=== PATIENT | female | born 1930 | race Caucasian/White ===

== ENCOUNTER 2016-04-27 09:20 | Inpatient (IN) | payer MEDICARE, OTHER ==
[~2016-04-27] VITALS: Ht 160 cm; Wt 64.2 kg
[2016-04-27] VITALS (8 sets, daily range): BP systolic 125–142; BP diastolic 58–71; PULSE 77–120; RESP 16–24; TEMP 95.7–99.7; O2SAT 94–99
[~2016-04-27 09:20] MED LIST: AMLO5 PO; APIX2.5T PO; ASPI1TAB69 PO; AZEL137S EACH NARE; COLA100C3 PO; HYDR-3583 PO; LIDO5DIS35 TOPICAL; LIPI10TA PO; METO100T PO; MIRA33504 PO; SENN8.6T5 PO; VITA10003 PO; [UNRECOGNIZED DRUG - CODE] PO; voltaren gel TOPICAL
[2016-04-27] MEDS ORDERED: AMIT10TA6 PO (10:01)
[2016-04-27] MEDS ORDERED: MAGN65TA PO (10:01)
[2016-04-27] MEDS ORDERED: VITA20003 PO (10:01)
[2016-04-27] MEDS ORDERED: MULT-135 PO (10:01)
[2016-04-27] MEDS ORDERED: [UNRECOGNIZED DRUG - OTHER] PO (10:01)
[2016-04-27 10:02] LABS: AUTOMATED NEUTROPHIL # 6.4 TH/MM3 (1.8-7.7); BASOPHIL # 0.1 TH/MM3 (0-0.2); BASOPHIL % 0.9 % (0.0-2.0); EOSINOPHIL # 0.6 TH/MM3 (0-0.4); EOSINOPHIL % 6.2 % (0.0-4.0); HEMATOCRIT 34.7 % (35.0-46.0); HEMO FLAGS DIFF FINAL; LYMPH % 11.7 % (9.0-44.0); MEAN CELL VOLUME 86.6 FL (80.0-100.0); MEAN CORPUSCULAR HEMOGLOBIN 29.1 PG (27.0-34.0); MEAN CORPUSCULAR HGB CONC 33.6 % (32.0-36.0); MONO % 8.5 % (0.0-8.0); NEUT % 72.7 % (16.0-70.0); PLATELET COUNT 280 TH/MM3 (150-450); RED CELL DISTRIBUTION WIDTH 14.5 % (11.6-17.2); WHITE BLOOD COUNT 8.9 TH/MM3 (4.0-11.0)
[2016-04-27 10:15] LABS: APTT (PATIENT) 31.7 SEC (24.3-30.1); PROTHROMBIN TIME - PATIENT 11.4 SEC (9.8-11.6)
[2016-04-27 10:19] LABS: ANION GAP 8 MEQ/L (5-15); AST (GOT) 20 U/L (15-37); BLOOD UREA NITROGEN 16 MG/DL (7-18); CHLORIDE 102 MEQ/L (98-107); GLOMERULAR FILTRATION RATE 70 ML/MIN (>89); POTASSIUM 4.3 MEQ/L (3.5-5.1); SODIUM (NA) 138 MEQ/L (136-145)
[2016-04-27 10:23] LABS: ALKALINE PHOSPHATASE 116 U/L (45-117); ALT (GPT) 21 U/L (10-53); TOTAL BILIRUBIN ADULT 0.4 MG/DL (0.2-1.0)
[2016-04-27 10:27] LABS: BLOOD, URINE NEG (NEG); GLUCOSE,URINE NEG (NEG); KETONE, URINE NEG (NEG); NITRITE,URINE NEG (NEG); PH, URINE 6.5 (5.0-8.5); TRANSITIONAL EPI CELLS, URINE 1 /hpf; URINE COLOR YELLOW (YELLW/STRAW)
[2016-04-27 10:33] LABS: COMMENT (UR) CATH-CULT NOT IND; CULTURE IF INDICATED CATH CULTURE NOT IND
--- NOTE | 2016-04-27 10:47 | RADRPT ---
EXAM DATE/TIME: 04/27/2016 10:41 [facility] COMPARISON: CHEST SINGLE AP, July 21, 2015, 8:23. INDICATIONS : Dyspnea. MEDICAL HISTORY : None. SURGICAL HISTORY : None. ENCOUNTER: Initial ACUITY: 1 week PAIN SCORE: 0/10 LOCATION: Bilateral chest FINDINGS: Cardiomegaly is noted. No consolidation or effusion. Aortic calcification. CONCLUSION: No acute disease. Vitaly Barron MD on April 27, 2016 at 10:45 Board Certified Radiologist. This report was verified electronically.
--- NOTE | 2016-04-27 10:53 | RADRPT ---
EXAM DATE/TIME: 04/27/2016 10:46 [facility] COMPARISON: No previous studies available for comparison. INDICATIONS : Confusion and generalized weakness for three days. RADIATION DOSE: 30.23 CTDIvol (mGy) MEDICAL HISTORY : Cardiovascular disease. Hypertension. SURGICAL HISTORY : None. ENCOUNTER: Initial ACUITY: 3 days PAIN SCALE: 0/10 LOCATION: cranial TECHNIQUE: Multiple contiguous axial images were obtained of the head. Using automated exposure control and adj ustment of the mA and/or kV according to patient size, radiation dose was kept as low as reasonably a chievable to obtain optimal diagnostic quality images. FINDINGS: There are no fractures. There is mild atrophy and remote basal ganglia lacunar infarcts and patchy pe riventricular white matter disease. 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 No signs of acute infarct, hemorrhage or mass. CONCLUSION: No acute disease. Vitaly Barron MD on April 27, 2016 at 10:51 Board Certified Radiologist. This report was verified electronically.
--- NOTE | 2016-04-27 10:53 | PD ---
HPI Chief Complaint: Neuro Symptoms/ Deficits Time Seen by Provider: 09:43 Travel History International Travel<30 days: No Contact w/Intl Traveler<30days: No Traveled to known affect area: No History of Present Illness HPI 86 year-old woman who brought in by her daughter for complaints of unusual periods of weakness, associated with some intermittent short apnea, elevated heart rate, some low oxygen saturations, and confusion. This happened at night for the past 2 nights. Daughter is a nurse and checked her vital signs and noticed that her oxygen saturation was little low in the 80s. Daughter says the patient had similar episode about 10 years ago when she had a TIA. Patient lives with her daughter. She normally does pretty well. She walks slowly with a walker but otherwise able to care for herself in most ways. Prior to these symptoms starting 2 nights ago she otherwise has been feeling generally well and healthy. No recent cough or cold symptoms. No other complaints. History Past Medical History Narrative Medical A. fib Hypertension on hyperlipidemia Carotid artery disease, status post CEA Chronic knee pain, on oxycodone History of TIA in 2006 [facility] Social History Alcohol Use: No Tobacco Use: No Allergies-Medications (Allergen,Severity, Reaction): Coded Allergies: Sulfa (Verified Allergy, Intermediate, Rash, 03/10/16) Adhesives (Verified Allergy, Unknown, 03/10/16) Latex (Verified Allergy, Unknown, 03/10/16) Reported Meds & Prescriptions Reported Meds & Active Scripts Active Hydrocodone-Acetaminophen 10-325 mg Tab 1 Tab PO Q6H PRN not to be filled before 05-09-16 Reported Amitriptyline (Amitriptyline HCl) 10 Mg Tab 10 Mg PO HS Multi Vitamin (Multiple Vitamin) 1 Tab Tab 1 Tab PO DAILY [Ocu Support-Macular] 1 Tab PO BID Magnesium Aspartate (Magnesium) 65 Mg Tab 200 Mg PO BID Vitamin D (Cholecalciferol) 2,000 Unit Tab 2,000 Units PO DAILY Miralax Powder (Polyethylene Glycol 3350 Powder) 17 Gm Powd 17 Gm PO DAILY Mix and dissolve one measuring cap-ful (17 grams) in water or juice. Metoprolol Tartrate 100 Mg Tab 100 Mg PO BID Lipitor (Atorvastatin Calcium) 10 Mg Tab 10 Mg PO HS Aspirin 81 Mg Tabdr 81 Mg PO DAILY Norvasc (Amlodipine Besylate) 5 Mg Tab 5 Mg PO DAILY Eliquis (Apixaban) 2.5 Mg Tab 2.5 Mg PO BID Review of Systems Except as stated in HPI: all other systems reviewed are Neg Physical Exam Narrative GENERAL: Well-appearing 86 year-old woman, no acute distress. SKIN: Warm and dry. HEAD: Atraumatic. Normocephalic. EYES: Pupils equal and round. No scleral icterus. No injection or drainage. ENT: No nasal bleeding or discharge. Mucous membranes pink and moist. NECK: Trachea midline. No JVD. CARDIOVASCULAR: Regular rate and rhythm. No murmur appreciated. RESPIRATORY: No accessory muscle use. Clear to auscultation. Breath sounds equal bilaterally. GASTROINTESTINAL: Abdomen soft, non-tender, nondistended. Hepatic and splenic margins not palpable. MUSCULOSKELETAL: No obvious deformities. No edema. NEUROLOGICAL: Awake and alert. No obvious cranial nerve deficits. No facial asymmetry. Motor grossly within normal limits. Strength full and equal upper and lower extremities. Normal speech. PSYCHIATRIC: Appropriate mood and affect; insight and judgment normal. Data Data Last Documented VS Vital Signs Date Time Temp Pulse Resp B/P Pulse Ox O2 Delivery O2 Flow Rate FiO2 04/27/16 11:24 98.8 77 18 136/63 97 Nasal Cannula 2 Orders Complete Blood Count With Diff (04/27/16 09:44) Comprehensive Metabolic Panel (04/27/16 09:44) Act Partial Throm Time (Ptt) (04/27/16 09:44) Prothrombin Time / Inr (Pt) (04/27/16 09:44) Iv Access Insert/Monitor (04/27/16 09:44) Urinalysis - C+S If Indicated (04/27/16 09:44) Troponin I (04/27/16 09:44) Ct Brain W/O Iv Contrast(Rout) (04/27/16 ) Chest, Single Ap (04/27/16 ) Admit Order (Ed Use Only) (04/27/16 ) Labs Laboratory Tests Test 04/27/16 04/27/16 09:50 09:56 White Blood Count 8.9 TH/MM3 Red Blood Count 4.00 MIL/MM3 Hemoglobin 11.7 GM/DL Hematocrit 34.7 % Mean Corpuscular Volume 86.6 FL Mean Corpuscular Hemoglobin 29.1 PG Mean Corpuscular Hemoglobin 33.6 % Concent Red Cell Distribution Width 14.5 % Platelet Count 280 TH/MM3 Mean Platelet Volume 7.5 FL Neutrophils (%) (Auto) 72.7 % Lymphocytes (%) (Auto) 11.7 % Monocytes (%) (Auto) 8.5 % Eosinophils (%) (Auto) 6.2 % Basophils (%) (Auto) 0.9 % Neutrophils # (Auto) 6.4 TH/MM3 Lymphocytes # (Auto) 1.0 TH/MM3 Monocytes # (Auto) 0.8 TH/MM3 Eosinophils # (Auto) 0.6 TH/MM3 Basophils # (Auto) 0.1 TH/MM3 CBC Comment DIFF FINAL Differential Comment Prothrombin Time 11.4 SEC Prothromb Time International 1.0 RATIO Ratio Activated Partial 31.7 SEC Thromboplast Time Sodium Level 138 MEQ/L Potassium Level 4.3 MEQ/L Chloride Level 102 MEQ/L Carbon Dioxide Level 28.0 MEQ/L Anion Gap 8 MEQ/L Blood Urea Nitrogen 16 MG/DL Creatinine 0.78 MG/DL Estimat Glomerular Filtration 70 ML/MIN Rate Random Glucose 121 MG/DL Calcium Level 9.3 MG/DL Total Bilirubin 0.4 MG/DL Aspartate Amino Transf 20 U/L (AST/SGOT) Alanine Aminotransferase 21 U/L (ALT/SGPT) Alkaline Phosphatase 116 U/L Troponin I LESS THAN 0.02 NG/ML Total Protein 7.3 GM/DL Albumin 3.0 GM/DL Urine Color YELLOW Urine Turbidity CLEAR Urine pH 6.5 Urine Specific [place] 1.012 Urine Protein NEG mg/dL Urine Glucose (UA) NEG mg/dL Urine Ketones NEG mg/dL Urine Occult Blood NEG Urine Nitrite NEG Urine Bilirubin NEG Urine Urobilinogen LESS THAN 2.0 MG/DL Urine Leukocyte Esterase NEG Urine RBC LESS THAN 1 /hpf Urine WBC LESS THAN 1 /hpf Urine Transitional Epithelial 1 /hpf Cells Microscopic Urinalysis Comment CATH-CULT NOT IND MDM Medical Decision Making Medical Screen Exam Complete: Yes Emergency Medical Condition: Yes Interpretation(s) My review of EKG: Irregular wide-complex rhythm, rate of undetermined, left bundle branch block type pattern, some anterior precordial ST changes, compared to previous EKG from June 2015, wide-complex rhythm is new. LABS: CBC unremarkable. CMP is unremarkable Troponin is negative Coags are unremarkable UA is negative. Head CT: No acute disease. Chest x-ray: No acute disease. Differential Diagnosis Generalized weakness, infection, adverse effect to medication, kidney failure, other Narrative Course Medical decision making Send a 86-year-old woman who presents to the emergency room brought in by her daughter for what sounds like transient episodes of generalized weakness, confusion, associated with abnormal vital signs with tachycardia history of A. fib, and possibly short periods of apnea with low oxygen saturations. She is on oxycodone daily bit of actually been cutting back. She otherwise has been feeling well. We'll check x-ray, CT, labs, reassess. FINAL: 86 year-old woman, unusual episodes generalized weakness, appear benign, spoke with patient's primary physician, Dr. Tejada, will admit the patient to the hospital. Admitting Information Admitting Physician Requests: Observation Simon Alonso MD Apr 27, 2016 10:53
--- NOTE | 2016-04-27 12:00 | HHI.HP ---
[facility] Service Family Medicine Primary Care Physician Jose Daniel Tejada MD Admission Diagnosis AMS Diagnoses: International Travel<30 Days: No Contact w/Intl Traveler<30days: No Known Affected Area: No History of Present Illness Per patient's daughter, who presented with the patient, on WednesdayApril 24 , patient couldn't walk for about 3 hours between 5 PM and 8 PM. The next day she was fine. Then on April 26, at 5pm-8pm again, patient experienced inability to walk that again lasted 3 hours. Per patient's daughter, pt wanted to go to the bathroom, and could stand but couldn't stay up, couldn't move legs. Daughter noted yesterday that she had apneic spells for 10-15 seconds while sitting up at the table. Daughter, who is a nurse, took her bp and noted a RR of 24-28 bpm, and that her oxygen saturation was little low in the 80s. Daughter says the patient had similar episode about 10 years ago when she had a TIA. Patient lives with her daughter. She normally does pretty well. She walks slowly with a walker but otherwise able to care for herself in most ways. Prior to these symptoms starting 2 nights ago she otherwise has been feeling generally well and healthy. No recent cough or cold symptoms. No other complaints. No symptoms today. No chest pain, headache, vision change, hearing change (wear hearing aids), dysphagia, fever yesterday and day before to 100.4. Pt went to bed with fever, took pain medication, and woke up with night sweats such that she soaked through her pajamas. No appetite, but no diarrhea, no reflux symptoms , but + loose stools with Miralax, no constipation, no dysuria, no urinary changes. No other changes with legs except weakness as above. When asked if any pills from the pharmacy look different, daughter reported that the amytripyline looks different; it is now bright pink. A couple weeks ago, patient was visiting a retina specialist when she fell against wall and now has had bruise on leg. No skin breakdown. (Yasir Schofield MD R1) Review of Systems Constitutional: COMPLAINS OF: Fever (yesterday in the data for to 100.4), Change in appetite (no appetite), Night Sweats (the night she went to bed with a fever, she soaked through her pajamas) Eyes: DENIES: Blurred vision, Vision loss, Double Vision Ears, nose, mouth, throat: DENIES: Hearing loss (patient does wear hearing aids , but no hearing change acutely) Respiratory: DENIES: Cough Cardiovascular: DENIES: Chest pain Gastrointestinal: DENIES: Diarrhea, Nausea, Vomiting, Difficulty Swallowing Genitourinary: DENIES: Dysuria Musculoskeletal: COMPLAINS OF: Joint pain (chronic knee pain) Integumentary: DENIES: Rash Neurologic: DENIES: Headache (Yasir Schofield MD R1) Past Family Social History Past Medical History Past Medical History: Hypertension Atrial fibrillation Elevated cholesterol Obstructive sleep apnea Dry eye 3 para 2 AB 1 Childhood illnesses: Chickenpox, measles, mumps Other Physicians/Providers Involved in the Care of Patient:Angela Villarreal [place] - [facility] Specialist Health Maintenance: Refuses flu shot Colonoscopy 2007 Mammogram 2012 Recently sent in [facility] Prevnar 13 October 23, 2014 Past Surgical History Past Surgical/Procedural History: 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 November 1999 Fracture knee 2000 Carotid left endarterectomy 2013 Reported Medications Prescriptions Reviewed Last Reconciled on 03/10/16 12:49 by JOSE DANIEL TEJADA Azelastine-Fluticasone Nasal [place] (Dymista Nasal [place])137-50 Mcg Spray1 [place] EACH NARE DAILY #1 BOTTLE Ref 0 Reported 03/10/16 Polyethylene Glycol 3350 Powder (Miralax Powder)17 Gm Powd17 Gm PO DAILY #1 BOTTLE Ref 0 Reported 03/10/16 Sennosides (Senna)8.6 Mg Tab8.6 Mg PO HS PRN (Constipation) #60 TAB Ref 0 Reported 03/10/16 Metoprolol Tartrate 100 Mg Bae236 Mg PO BID #60 TAB Ref 0 Reported 03/10/16 Rkxbhe-Ogcfmrqbsl-Vvpqvlds (Viteyes Essentials)15-4.75-100 Mg-Mg-Mcg Cap1 Cap PO DAILY Ref 0 Reported 03/10/16 Docusate Sodium (Colace)100 Mg Klk430 Mg PO DAILY #30 CAP Ref 0 Reported 03/10/16 Cholecalciferol (Vitamin D-3)1,000 Unit Tab2,000 Units PO DAILY #30 TAB Ref 0 Reported 03/10/16 Atorvastatin (Lipitor)10 Mg Tab10 Mg PO HS #30 TAB Ref 0 Reported 03/10/16 Aspirin 81 Mg Tabdr81 Mg PO DAILY Reported 03/10/16 Amlodipine (Norvasc)5 Mg Tab5 Mg PO DAILY #30 TAB Ref 0 Reported 03/10/16 Lidocaine Patch 12 HR (Lidoderm Patch 12 HR)5% Patch2 Patch TOPICAL DAILY #120 BOX Ref 0 Reported 03/10/16 Apixaban (Eliquis)2.5 Mg Tab2.5 Mg PO BID #60 TAB Ref 0 Reported 03/10/16 Hydrocodone-Acetaminophen 10-325 mg Tab1 Tab PO Q6H PRN (PAIN) #120 TAB Ref 0 Prov: Jose Daniel Tejada MD 03/10/16 [voltaren gel] No Conflict Check1 Ml TOPICAL TID #100 Ref 3 Prov: Jose Daniel Tejada MD 12/17/15 Amytriptiline 10mg po qhs (Yasir Schofield MD R1) Allergies: Coded Allergies: Sulfa (Verified Allergy, Intermediate, Rash, 03/10/16) Adhesives (Verified Allergy, Unknown, 03/10/16) Latex (Verified Allergy, Unknown, 03/10/16) Uncoded Allergies: PACEMAKER (Adverse Reaction, Severe, NON COMPATIBLE PACEMAKER, 04/27/16) PT HAS [employer] PACMAKER BUT IT IS NOT MR COMPATIBLE AT THIS TIME ?LEADS 04/27/16 VSV Active Ordered Medications Current Medications Medications (Trade) Dose Ordered Sig/[place] Route Start Time Stop Time Status Last Admin (NS Flush) 2 ml BID IVF 04/27/16 21:00 IV Flush 2 ml 2 ml UNSCH PRN IVF 04/27/16 12:45 (NS 1000 ml Inj) 1,000 ml @ 70 mls/hr [id number] IV 04/27/16 13:00 04/27/16 13:00 (Vasotec Inj) 1.25 mg Q4H PRN IV 04/27/16 12:45 (D50w (Vial) Inj) 25 ml UNSCH PRN IV PUSH 04/27/16 12:45 (Glucagon Inj) 1 mg UNSCH PRN IM/SQ 04/27/16 12:45 (Elavil) 10 mg HS PO 04/27/16 21:00 04/27/16 22:35 (Norvasc) 5 mg DAILY PO 04/28/16 09:00 (Eliquis) 2.5 mg BID PO 04/27/16 21:00 04/27/16 22:36 (Ecotrin Ec) 81 mg DAILY PO 04/28/16 09:00 (Lipitor) 10 mg HS PO 04/27/16 21:00 04/27/16 22:36 (Lopressor) 100 mg BID PO 04/27/16 21:00 04/27/16 22:36 (Miralax) 17 gm DAILY PO 04/28/16 09:00 (Mag-Ox) 200 mg BID PO 04/27/16 21:00 04/27/16 22:36 (Ocuvite) 1 tab BID PO 04/27/16 21:00 04/27/16 22:35 ([place] 10-325 Mg) 1 tab Q8H PRN PO 04/27/16 12:45 04/27/16 22:58 (Pill Splitter) 1 ea UNSCH PRN OTHER 04/27/16 13:00 Family History Family History: Father: at age 63 with history of alcoholism, esophageal cancer, and tobacco use Mother: in mid 70s with alcoholism, osteoporosis, emphysema and congestive heart failure Siblings: Brother at age 54 of a drug overdose and alcoholism Children: Son after atrial septal defect heart surgery at the age of 5, daughter, living and well status post endometrial cancer in 1998 Family Medical History Patient History: Alcohol abuse G8 FATHER G8 MOTHER G8 BROTHER Alcohol abuse G8 FATHER G8 MOTHER G8 BROTHER Arthritis 19 DAUGHTER, Onset:Unknown Social History Social History: Marital Status: for 25 years Living Situation: Lives in [place] Education: high school 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 SKIN: No rashes, ecchymoses or lesions. Cool and dry. HEAD: Atraumatic. Normocephalic. EYES: Pupils equal round and reactive. Extraocular motions intact. No scleral icterus. No injection or drainage. ENT: Nose without bleeding, purulent drainage. Throat without erythema, tonsillar hypertrophy or exudate. Uvula midline. Airway patent. NECK: Trachea midline. No JVD or lymphadenopathy. Supple, nontender, no meningeal signs. CARDIOVASCULAR: Regular rate and rhythm without murmurs, gallops, or rubs. RESPIRATORY: Clear to auscultation. Breath sounds equal bilaterally. No wheezes , rales, or rhonchi. GASTROINTESTINAL: Abdomen soft, non-tender, nondistended. No guarding. MUSCULOSKELETAL: Extremities without clubbing, cyanosis, or edema. No joint tenderness, effusion, or edema noted. No calf tenderness. No fifth toes BL. Surgical scars on feet. NEUROLOGICAL: Awake and alert. Cranial nerves II through XII intact. 4/5 stregnth of right hip flexor. Motor and sensory grossly within normal limits. 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 Normal speech. Laboratory Laboratory Tests Test 04/27/16 04/27/16 09:50 09:56 White Blood Count 8.9 Red Blood Count 4.00 Hemoglobin 11.7 Hematocrit 34.7 Mean Corpuscular Volume 86.6 Mean Corpuscular Hemoglobin 29.1 Mean Corpuscular Hemoglobin 33.6 Concent Red Cell Distribution Width 14.5 Platelet Count 280 Mean Platelet Volume 7.5 Neutrophils (%) (Auto) 72.7 Lymphocytes (%) (Auto) 11.7 Monocytes (%) (Auto) 8.5 Eosinophils (%) (Auto) 6.2 Basophils (%) (Auto) 0.9 Neutrophils # (Auto) 6.4 Lymphocytes # (Auto) 1.0 Monocytes # (Auto) 0.8 Eosinophils # (Auto) 0.6 Basophils # (Auto) 0.1 CBC Comment DIFF FINAL Differential Comment Prothrombin Time 11.4 Prothromb Time International 1.0 Ratio Activated Partial 31.7 Thromboplast Time Sodium Level 138 Potassium Level 4.3 Chloride Level 102 Carbon Dioxide Level 28.0 Anion Gap 8 Blood Urea Nitrogen 16 Creatinine 0.78 Estimat Glomerular Filtration 70 Rate Random Glucose 121 Calcium Level 9.3 Total Bilirubin 0.4 Aspartate Amino Transf 20 (AST/SGOT) Alanine Aminotransferase 21 (ALT/SGPT) Alkaline Phosphatase 116 Troponin I LESS THAN 0.02 Total Protein 7.3 Albumin 3.0 Urine Color YELLOW Urine Turbidity CLEAR Urine pH 6.5 Urine Specific [place] 1.012 Urine Protein NEG Urine Glucose (UA) NEG Urine Ketones NEG Urine Occult Blood NEG Urine Nitrite NEG Urine Bilirubin NEG Urine Urobilinogen LESS THAN 2.0 Urine Leukocyte Esterase NEG Urine RBC LESS THAN 1 Urine WBC LESS THAN 1 Urine Transitional Epithelial 1 Cells Microscopic Urinalysis Comment CATH-CULT NOT IND (Yasir Schofield MD R1) Result Diagram: 04/27/16 0950 04/27/16 0950 Imaging Last Impressions Head CT 04/27/16 0000 Signed Impressions: Service Date/Time: Wednesday, April 27, 2016 10:46 - CONCLUSION: No acute disease. Vitaly Barron MD Chest X-Ray 04/27/16 0000 Signed Impressions: Service Date/Time: Wednesday, April 27, 2016 10:41 - CONCLUSION: No acute disease. Vitaly Barron MD Carotid Artery Ultrasound 04/27/16 0000 Signed Impressions: Service Date/Time: Wednesday, April 27, 2016 13:29 - CONCLUSION: 1. No evidence for hemodynamically significant stenosis. Vitaly Barron MD Course In the emergency department, patient had a troponin, urinalysis, PT/INR, APTT, CMP, CBC, chest x-ray, CT brain without IV contrast, EKG. (Yasir Schofield MD R1) Assessment and Plan Assessment and Plan 86-year-old female presents with her daughter with a chief complaint of intermittent, transient lower extremity weakness concerning for TIA. Will admit for TIA workup. Code Status Full code Discussed Condition With Patient seen and discussed with Dr. Tang Tejada and Dr. Jose Daniel Tejada. (Yasir Schofield MD R1) Attending Attestation Patient seen and examined. Case reviewed and discussed with the resident team. Agree with plan of care as discussed with me and documented in the resident note. (Jose Daniel Tejada MD) Problem List: (1) Weakness of both legs Status: Acute Plan: Patient admitted for TIA workup with chief complaint of lower extremity weakness. Admit to inpatient Echocardiogram Carotid ultrasound No MRI or MRA given patient's ICD with metal Hemoglobin A1c, lipid profile BMP, CBC in the morning Normal saline IV 70 mL/h Permissive hypertension and strict blood glucose control with low-dose sliding scale insulin Rehabilitation medicine consult (2) Knee pain, chronic Status: Chronic Plan: Patient mostly stable on home medications. Continue home medications as below: [place] 325-10 mg on tab by mouth every 8 hours when necessary for pain MiraLAX 17 g by mouth daily for opioid-induced constipation Amitriptyline 10 mg by mouth daily at bedtime to help with sleep and chronic pain (3) Atrial fibrillation, chronic Status: Chronic Plan: Continue home medications. Apixaban 2.5 mg by mouth twice a day Aspirin 81 mg by mouth daily Metoprolol tartrate 100 mg by mouth twice a day (4) Hypertension Status: Chronic Plan: Patient mostly stable on home medications. Continue home medications as below: Amlodipine 5 mg by mouth daily Metoprolol as above (5) HLD (hyperlipidemia) Status: Chronic Plan: Continue home medication. Atorvastatin 10 mg by mouth daily at bedtime (6) Pacemaker Status: Chronic Plan: No MRI or MRA because of metal components of patient's pacemaker. (7) Nutrition, metabolism, and development symptoms Status: Acute Plan: Fluids: Normal saline IV 70 mL per hour Electrolytes: Monitor and replete as necessary Nutrition: Heart healthy diet GI prophylaxis: Currently indicated at this time (8) No contraindication to deep vein thrombosis (DVT) prophylaxis Status: Acute Plan: Patient on apixaban at home. Continue home medication of apixaban 2.5 mg by mouth twice a day (Yasir Schofield MD R1) Yasir Schofield MD R1 Apr 27, 2016 12:00 Jose Daniel Tejada MD Apr 28, 2016 14:11
--- NOTE | 2016-04-27 12:42 | HHI.FPPN ---
Subjective Remarks Pt. seen, examined and discussed with Drs. Tejada and Kanwal. This is an 86 yo female known to me with history of spells X 2 on -and 04-26 at 5 pm lasting 3 hr where she was weak and felt unable to ambulate. No chest pain, headache, visual change or unilateral weakness, just felt unable to stand. Daughter took her temp at 100.4 because she felt warm. Last evening, prior to 5 p.m. daughter noted a couple of spells of apnea lasting 10- 15 seconds. See H&P for this admission for additional past, family and social history. No new changes. Sees Dr. Connelly and the retina specialist for wet macular degeneration and needs a yag laser treatment for capsule formation on her cataract implant. Complete review of systems was obtained and other than the spells and brief apnea noted above, as well as chronic knee pain from osteoarthritis, all the other systems were negative. Objective Vitals Vital Signs Date Time Temp Pulse Resp B/P Pulse Ox O2 Delivery O2 Flow Rate FiO2 04/27/16 11:24 98.8 77 18 136/63 97 Nasal Cannula 2 04/27/16 09:39 78 18 95 Nasal Cannula 2 04/27/16 09:32 98.2 78 18 94 04/27/16 09:22 97.8 80 16 125/58 95 Result Diagram: 04/27/16 0950 04/27/16 0950 Other Results Laboratory Tests Test 04/27/16 04/27/16 09:50 09:56 White Blood Count 8.9 TH/MM3 Red Blood Count 4.00 MIL/MM3 Hemoglobin 11.7 GM/DL Hematocrit 34.7 % Mean Corpuscular Volume 86.6 FL Mean Corpuscular Hemoglobin 29.1 PG Mean Corpuscular Hemoglobin 33.6 % Concent Red Cell Distribution Width 14.5 % Platelet Count 280 TH/MM3 Mean Platelet Volume 7.5 FL Neutrophils (%) (Auto) 72.7 % Lymphocytes (%) (Auto) 11.7 % Monocytes (%) (Auto) 8.5 % Eosinophils (%) (Auto) 6.2 % Basophils (%) (Auto) 0.9 % Neutrophils # (Auto) 6.4 TH/MM3 Lymphocytes # (Auto) 1.0 TH/MM3 Monocytes # (Auto) 0.8 TH/MM3 Eosinophils # (Auto) 0.6 TH/MM3 Basophils # (Auto) 0.1 TH/MM3 CBC Comment DIFF FINAL Differential Comment Prothrombin Time 11.4 SEC Prothromb Time International 1.0 RATIO Ratio Activated Partial 31.7 SEC Thromboplast Time Sodium Level 138 MEQ/L Potassium Level 4.3 MEQ/L Chloride Level 102 MEQ/L Carbon Dioxide Level 28.0 MEQ/L Anion Gap 8 MEQ/L Blood Urea Nitrogen 16 MG/DL Creatinine 0.78 MG/DL Estimat Glomerular Filtration 70 ML/MIN Rate Random Glucose 121 MG/DL Calcium Level 9.3 MG/DL Total Bilirubin 0.4 MG/DL Aspartate Amino Transf 20 U/L (AST/SGOT) Alanine Aminotransferase 21 U/L (ALT/SGPT) Alkaline Phosphatase 116 U/L Troponin I LESS THAN 0.02 NG/ML Total Protein 7.3 GM/DL Albumin 3.0 GM/DL Urine Color YELLOW Urine Turbidity CLEAR Urine pH 6.5 Urine Specific Dennard 1.012 Urine Protein NEG mg/dL Urine Glucose (UA) NEG mg/dL Urine Ketones NEG mg/dL Urine Occult Blood NEG Urine Nitrite NEG Urine Bilirubin NEG Urine Urobilinogen LESS THAN 2.0 MG/DL Urine Leukocyte Esterase NEG Urine RBC LESS THAN 1 /hpf Urine WBC LESS THAN 1 /hpf Urine Transitional Epithelial 1 /hpf Cells Microscopic Urinalysis Comment CATH-CULT NOT IND Imaging CXR negative CT head old lacunar infarcts, old stroke, no acute findings Objective Remarks O. CONSTITUTIONAL/GEN: normally nourished, in NAD. EYES: conjunctiva normal, PERRLA, EOMI. ENT: Mouth and pharynx normal. MM moist. NECK: thyroid midline, carotids bruit not appreciated LUNGS: clear A-P, respiratory effort is normal. CARDIOVASCULAR: AF rate controlled without murmur or gallop. No significant edema. GI/ABD: soft without masses, without organomegaly. BS+ : no CVA tenderness NEURO: No focal deficits. CN 2-12 tested and intact SKIN: color normal, no rashes noted. HEME/LYMPH: no bruising, petechia or significant adenopathy MUSC: back is normal in appearance. 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 PSYCH/MENTAL STATUS: Alert and oriented x 3. A/P Assessment and Plan Likely TIA in 86 yo with hx of atrial fibrillation on Eliquis Attending Attestation Patient seen and examined. Case reviewed and discussed with the resident team. Agree with plan of care as discussed with me and documented in the resident note. Mallory Tejada MD Apr 27, 2016 12:42
[2016-04-27] MEDS ORDERED: SODIUM CHLORIDE 0.9% FLUSH 5 ML FLUSH IVF PRN (12:45)
[2016-04-27] MEDS ORDERED: ACETAMINOPHEN/HYDROcodone 325 MG/10 MG TAB PO PRN (12:45)
[2016-04-27] MEDS ORDERED: DEXTROSE 50% IN WATER 50 ML VIAL(D50) IV PUSH PRN (12:45)
[2016-04-27] MEDS ORDERED: ENALAPRILAT 1.25 MG/ML VIAL IV PRN (12:45)
[2016-04-27] MEDS ORDERED: GLUCAGON 1 MG/ML VIAL IM/SQ PRN (12:45)
[2016-04-27] MEDS ORDERED: PILL SPLITTER OTHER PRN (13:00)
[2016-04-27] MEDS: SODIUM CHLOR 0.9% 1000 ML INJ 1,000 ML IV SCH (13:00)
--- NOTE | 2016-04-27 14:09 | RADRPT ---
EXAM DATE/TIME: 04/27/2016 13:29 [facility] COMPARISON: No previous studies available for comparison. INDICATIONS : Cerebrovascular accident. MEDICAL HISTORY : Hypercholesterolemia. Hypertension. Arthritis. CVA. Atrial fibrillation. Chest pain. Sleep apnea. Ant icoagulant therapy, Eliquis and Coumadin. SURGICAL HISTORY : Pacemaker. Bilateral cataract surgery. Hip replacement. Knee surgery x5. Blood transfusions. ENCOUNTER: Initial ACUITY: 1 day PAIN SCORE: 0/10 LOCATION: Bilateral neck PEAK SYSTOLIC VELOCITIES (cm/sec): ICA/CCA RATIO: Right: 1.4 Left: 0.9 ICA: Right: 72 Left: 62 CCA: Right: 52 Left: 65 ECA: Right: 119 Left: 70 VERTEBRAL: Right: 40 antegrade Left: 39 antegrade Elevated flow velocities and ICA/CCA ratios have been found to correlate with increased degrees of vessel stenosis, calculated as percentage of diameter relative to a normal segment of distal ICA/CCA FINDINGS: RIGHT CAROTID: Moderate calcific plaquing is noted with mild elevated velocity in the right external carotid artery. LEFT CAROTID: No significant stenosis is visualized. The waveforms are within normal limits. VERTEBRAL ARTERIES: Antegrade flow is seen in both vertebral arteries. MISCELLANEOUS: None. CONCLUSION: 1. No evidence for hemodynamically significant stenosis. Vitaly Barron MD on April 27, 2016 at 14:06 Board Certified Radiologist. This report was verified electronically.
[2016-04-27] MEDS: ACETAMINOPHEN/HYDROcodone 325 MG/10 MG TAB PO PRN ×2 (16:43→22:58)
[2016-04-27] MEDS: INSULIN ASPART SUPPLEMENTAL SCALE SQ SCH ×2 (16:50→20:07)
[2016-04-27 18:11] LABS: HEMOGLOBIN A1a 1.2 %; HEMOGLOBIN A1b 0.9 %; HEMOGLOBIN Ao 84.2 %; HEMOGLOBIN F 1.1 %; HEMOGLOBIN LA1C 2.1 %; HEMOGLOBIN P3 4.1 %
--- NOTE | 2016-04-27 18:21 | EKG ---
Date Performed: 04/27/2016 Time Performed: 09:33:43 PTAGE: 86 years EKG: Probable atrial flutter Poor R wave progression with intraventricular conduction delay. Whe n compared to previous tracing, the patient is now possibly in Atrial flutter. Clinical correlation i s suggested. ABNORMAL ECG PREVIOUS TRACING : 07/21/2015 14.22 DOCTOR: Angela Villarreal Interpretating Date/Time 04/27/2016 18:19:49
[2016-04-27] MEDS ORDERED: AMITRIPTYLINE HCL 10 MG TAB PO SCH (21:00)
[2016-04-27] MEDS ORDERED: ATORVASTATIN 10 MG TAB PO SCH (21:00)
[2016-04-27] MEDS: SODIUM CHLORIDE 0.9% FLUSH 5 ML FLUSH IVF SCH (21:00)
[2016-04-27] MEDS: MULTIVITAMIN-OPHTHALMIC 1 TAB PO SCH (22:35)
[2016-04-27] MEDS: APIXABAN 2.5 MG TABLET PO SCH (22:36)
[2016-04-27] MEDS: MAGNESIUM OXIDE 400 MG TAB PO SCH (22:36)
[2016-04-27] MEDS: METOPROLOL TARTRATE 100 MG TAB PO SCH (22:36)
[2016-04-28] VITALS: BP 115/55; PULSE 88; RESP 18; TEMP 97.9; O2SAT 96
[2016-04-28] MEDS: SODIUM CHLOR 0.9% 1000 ML INJ 1,000 ML IV SCH (03:18)
[2016-04-28 04:00] VITALS: BP 137/68; PULSE 80; RESP 18; TEMP 96.3; O2SAT 94
[2016-04-28] MEDS: ACETAMINOPHEN/HYDROcodone 325 MG/10 MG TAB PO PRN (06:51)
[2016-04-28] MEDS: INSULIN ASPART SUPPLEMENTAL SCALE SQ SCH (07:00)
[2016-04-28 07:13] LABS: AUTOMATED NEUTROPHIL # 5.8 TH/MM3 (1.8-7.7); BASOPHIL % 0.5 % (0.0-2.0); EOSINOPHIL # 0.4 TH/MM3 (0-0.4); EOSINOPHIL % 5.7 % (0.0-4.0); HEMATOCRIT 34.9 % (35.0-46.0); HEMO FLAGS DIFF FINAL; LYMPH % 10.3 % (9.0-44.0); LYMPHOCYTE # 0.8 TH/MM3 (1.0-4.8); MEAN CELL VOLUME 87.1 FL (80.0-100.0); MEAN CORPUSCULAR HEMOGLOBIN 28.8 PG (27.0-34.0); MONO % 8.2 % (0.0-8.0); NEUT % 75.3 % (16.0-70.0); PLATELET COUNT 236 TH/MM3 (150-450); RED BLOOD COUNT 4.01 MIL/MM3 (4.00-5.30); RED CELL DISTRIBUTION WIDTH 14.7 % (11.6-17.2); WHITE BLOOD COUNT 7.7 TH/MM3 (4.0-11.0)
[2016-04-28 07:18] LABS: POTASSIUM 4.2 MEQ/L (3.5-5.1)
[2016-04-28 07:19] LABS: HDL CHOLESTEROL 43.2 MG/DL (40.0-60.0)
[2016-04-28 07:44] VITALS: PULSE 87
[2016-04-28 08:12] VITALS: BP 136/61; PULSE 94; RESP 20; TEMP 97.2; O2SAT 91
[2016-04-28 08:28] VITALS: O2SAT 94
[2016-04-28] MEDS ORDERED: amLODIPine BESYLATE 5 MG TAB PO SCH (09:00)
[2016-04-28] MEDS ORDERED: POLYETHYLENE GLYCOL 17 GM PKG PO SCH (09:00)
[2016-04-28] MEDS ORDERED: ASPIRIN EC 81 MG TABEC PO SCH (09:00)
--- NOTE | 2016-04-28 09:08 | HHI.DCPOC ---
Discharge Care Plan Diagnosis: (1) Weakness of both legs Goals to Promote Your Health * To prevent worsening of your condition and complications, please take your medications as prescribed. * To maintain your health at the optimal level, please follow up with your doctors as instructed. Directions to Meet Your Goals Take your medications as prescribed Follow your dietary instruction Follow activity as directed Keep your appointments as scheduled Take your immunizations and boosters as scheduled If your symptoms worsen call your PCP, if no PCP go to Urgent Care Center or Emergency Room Smoking is Dangerous to Your Health. Avoid second hand smoke Call the 24-hour hour crisis hotline for domestic abuse at Yasir Schofield MD R1 Apr 28, 2016 09:08
[2016-04-28] MEDS: MULTIVITAMIN-OPHTHALMIC 1 TAB PO SCH (09:32)
[2016-04-28] MEDS: APIXABAN 2.5 MG TABLET PO SCH (09:32)
[2016-04-28] MEDS: MAGNESIUM OXIDE 400 MG TAB PO SCH (09:33)
[2016-04-28] MEDS: METOPROLOL TARTRATE 100 MG TAB PO SCH (09:33)
[2016-04-28] MEDS: SODIUM CHLORIDE 0.9% FLUSH 5 ML FLUSH IVF SCH (09:34)
--- NOTE | 2016-04-28 10:38 | HHI.FF ---
Face to Face Verification Diagnosis: (1) Weakness of both legs Physical Therapy Order: Evaluate and Treat, Improve ambulation, Strength and gait training Occupational Therapy Order: Evaluate and Treat, Improve ADL, Gross motor coordination I have seen patient Smitha Briggs on 04/28/16. My clinical findings support the need for the requested home health care services because: Ltd mobility - disease progression Deconditioned w/ increased weakness Limited ability to care for self High risk of falls I certify that my clinical findings support that this patient is homebound because: Unsteady gait/balance Unsafe to leave home unassisted Patient seen and examined. Case reviewed and discussed with the resident team. Agree with plan of care as discussed with me and documented in the resident note. Yasir Schofield MD R1 Apr 28, 2016 10:38 Mallory Tejada MD Apr 28, 2016 13:46
--- NOTE | 2016-04-28 13:26 | HHI.FPPN ---
Subjective Remarks No acute events overnight. Afebrile, vital signs stable. Patient is clinically improved this morning and wishes to go home. She has no complaints at this time. (Bryanna Paula MD R3) Objective Vitals Vital Signs Date Time Temp Pulse Resp B/P Pulse Ox O2 Delivery O2 Flow Rate FiO2 04/28/16 08:28 94 21 04/28/16 08:12 97.2 94 20 136/61 91 04/28/16 07:44 87 04/28/16 04:00 96.3 80 18 137/68 94 04/28/16 00:00 97.9 88 18 115/55 96 04/27/16 23:00 117 04/27/16 20:00 97.9 120 24 131/68 96 04/27/16 16:52 99.7 04/27/16 16:05 Nasal Cannula 2.00 04/27/16 16:00 95.7 98 20 142/67 99 I/O 04/27/16 04/27/16 04/27/16 04/28/16 04/28/16 04/28/16 06:59 14:59 22:59 06:59 14:59 22:59 Intake Total 240 ml 240 ml Balance 240 ml 240 ml Intake Oral 240 ml 240 ml # Voids 1 1 # Bowel Movements 0 (Bryanna Paula MD R3) Result Diagram: 04/28/16 0620 04/28/16 0620 Objective Remarks Gen.: No acute distress Head: Normocephalic. Atraumatic. EENT: Pupils equal round and reactive to light. Nose without drainage. Airway intact. Throat without injection. Cardiovascular: Regular rate with irregular rhythm. No murmurs, rubs or gallops. Respiratory: Lungs clear to auscultation bilaterally. No wheezes or rhonchi. Abdomen: Soft, nontender, nondistended. No peritoneal signs. Musculoskeletal: No gross deformities. No edema. Skin: No obvious rashes or erythema. Neuro: Sensory and motor grossly intact. Cranial nerves II through XII grossly intact. Psych: Appropriate mood and affect (Bryanna Paula MD R3) A/P Assessment and Plan 86-year-old female presents with her daughter with a chief complaint of intermittent, transient lower extremity weakness concerning for TIA. Discharge Planning To home today with home PT/OT (Bryanna Paula MD R3) Attending Attestation Patient seen and examined. Case reviewed and discussed with the resident team. Agree with plan of care as discussed with me and documented in the resident note. (Mallory Tejada MD) Problem List: (1) Weakness of both legs Status: Acute Plan: Patient admitted for TIA workup with chief complaint of lower extremity weakness. Carotid ultrasound within normal limits No MRI or MRA given patient's ICD with metal Hemoglobin A1c, lipid profile within normal limits Normal saline IV 70 mL/h Permissive hypertension and strict blood glucose control with low-dose sliding scale insulin (2) Knee pain, chronic Status: Chronic Plan: Patient mostly stable on home medications. Continue home medications as below: [place] 325-10 mg on tab by mouth every 8 hours when necessary for pain MiraLAX 17 g by mouth daily for opioid-induced constipation Amitriptyline 10 mg by mouth daily at bedtime to help with sleep and chronic pain Discharge with physical therapy (3) Atrial fibrillation, chronic Status: Chronic Plan: Continue home medications. Apixaban 2.5 mg by mouth twice a day Aspirin 81 mg by mouth daily Metoprolol tartrate 100 mg by mouth twice a day (4) Hypertension Status: Chronic Plan: Patient mostly stable on home medications. Continue home medications as below: Amlodipine 5 mg by mouth daily Metoprolol as above (5) HLD (hyperlipidemia) Status: Chronic Plan: Continue home medication. Atorvastatin 10 mg by mouth daily at bedtime (6) Pacemaker Status: Chronic Plan: No MRI or MRA because of metal components of patient's pacemaker. (7) Nutrition, metabolism, and development symptoms Status: Acute Plan: Fluids: Normal saline IV 70 mL per hour Electrolytes: Monitor and replete as necessary Nutrition: Heart healthy diet (8) No contraindication to deep vein thrombosis (DVT) prophylaxis Status: Acute Plan: Patient on apixaban at home. Continue home medication of apixaban 2.5 mg by mouth twice a day (Bryanna Paula MD R3) Bryanna Paula MD R3 Apr 28, 2016 13:26 Mallory Tejada MD Apr 28, 2016 14:19
--- NOTE | 2016-04-28 17:58 | EC ---
Study Study Date:04/28/2016 STUDY CONCLUSIONS SUMMARY - Left ventricle: Systolic function was probably normal. The estimated ejection fraction was in the range of 55% to 60%. - Mitral valve: Mild regurgitation. - Left atrium: The atrium was mildly dilated. - Tricuspid valve: Mild-moderate regurgitation. - Pulmonary arteries: PA peak pressure: 41mm Hg (S). If LV function is below 40, please consider prescribing an ACEI or ARB or document rationale for non-use. PROCEDURE DATA STUDY STATUS: Elective. Procedure: Transthoracic echocardiography. Image quality was good. Scanning was performed from the parasternal, apical, and subcostal acoustic windows. Study completion: The patient tolerated the procedure well. Transthoracic echocardiography. M-mode, complete 2D, complete spectral Doppler, and color Doppler. Patient status: Inpatient. CARDIAC ANATOMY LEFT VENTRICLE: Systolic function was probably normal. The estimated ejection fraction was in the range of 55% to 60%. AORTIC VALVE: Mildly calcified leaflets. Doppler: There was no stenosis. No significant regurgitation. Valve area: 1.56cm^2 (Vmax). MITRAL VALVE: The valve appears to be grossly normal. Doppler: There was no evidence for stenosis. Mild regurgitation. LEFT ATRIUM: The atrium was mildly dilated. PULMONIC VALVE: Not well visualized. TRICUSPID VALVE: The valve appears to be grossly normal. Doppler: There was no evidence for stenosis. Mild-moderate regurgitation. BASIC MEASUREMENTS ADULT NORMAL Left ventricle LV internal dimension, ED, chordal level, *41 mm 43-52 PLAX LV internal dimension, ES, chordal level, 32 mm 23-38 PLAX Fractional shortening, chordal level, PLAX *22 % >29 LV posterior wall thickness, ED 8.98 mm IVS/LVPW ratio, ED 1.16 <1.3 Ventricular septum Septal thickness, ED 10.4 mm Aortic valve Leaflet separation 15 mm 15-26 BASIC MEASUREMENTS ADULT NORMAL Aortic valve Leaflet separation 15 mm 15-26 Aorta Root diameter, ED 20 mm 20-37 Left atrium Anterior-posterior dimension, ES *43 mm 19-40 LA/aortic root ratio 2.15 DOPPLER MEASUREMENTS ADULT NORMAL Main pulmonary artery Pressure, S *41 mm Hg =30 Pressure, ED 27 mm Hg Aortic valve Peak velocity, S 133 cm/s Valve area, Vmax 1.56 cm^2 Mitral valve Maximal regurgitant velocity 212 cm/s Tricuspid valve Regurgitant peak velocity 292 cm/s Peak RV-RA gradient, S 34 mm Hg Maximal regurgitant velocity 292 cm/s Systemic veins Estimated CVP 10 mm Hg Right ventricle RV pressure, S *46 mm Hg <30 Pulmonic valve Peak velocity, S 114 cm/s Regurgitant velocity, ED 204 cm/s LEGEND: Mean values are shown as u=mean value. Asterisk (*) holley values outside specified normal range. Prepared and signed by Sameer Harvey [id number]
[2016-06-02] MEDS ORDERED: HYDR-3583 PO ×2 (09:37→09:43)
[2016-06-03] MEDS ORDERED: alpha lipoic acid (09:30)
[2016-06-03] MEDS ORDERED: POTA10TA15 PO (09:30)
[2016-06-03] MEDS ORDERED: CO Q200C PO (09:30)
[2016-06-03] MEDS ORDERED: FURO1TAB62 PO (09:30)
[2016-06-03] MEDS ORDERED: OXYGENTANK NAS.CANULA (09:30)
[2016-06-03] MEDS ORDERED: [UNRECOGNIZED DRUG - OTHER] PO (09:30)
[2016-06-03] MEDS ORDERED: MAGN400T2 PO (09:30)
[2016-06-03] MEDS ORDERED: LIDO1PAD52 TOPICAL (09:30)
[2016-09-01] MEDS ORDERED: HYDR-3583 PO ×3 (09:17→09:20)
[2016-10-08] MEDS ORDERED: AMIT10TA6 PO (14:26)
== END 2016-04-28 13:02 | disposition home health service (06) | DRG 69 ==
LOC: NEPE 09:20 → OBSVTOIN 11:40 → NEDA 11:40 → N05B 15:55
PROVIDERS: ADMIT Family Medicine; ATTEND Family Medicine
DX: G45.9 Transient cerebral ischemic attack, unspecified (principal); I48.2 Chronic atrial fibrillation; R53.1 Weakness; E78.5 Hyperlipidemia, unspecified; G47.33 Obstructive sleep apnea (adult) (pediatric); G89.29 Other chronic pain; I10 Essential (primary) hypertension; M17.10 Unilateral primary osteoarthritis, unspecified knee; H35.3290 Exudative age-related macular degeneration, unspecified eye, stage unspecified; Z86.73 Personal history of transient ischemic attack (TIA), and cerebral infarction without residual deficits; Z79.01 Long term (current) use of anticoagulants; Z95.0 Presence of cardiac pacemaker; Z88.2 Allergy status to sulfonamides; Z91.040 Latex allergy status
CPT/HCPCS: 70450; 71010; 80048; 80053; 80061; 81001; 82948; 83036; 84484; 85025; 85610; 85730; 93005; 93306; 93880; J1815; J7030

== ENCOUNTER 2016-04-29 08:12 | Inpatient (IN) | payer MEDICARE, OTHER ==
[~2016-04-29] VITALS: Ht 160 cm; Wt 70.0 kg
[~2016-04-29 08:12] MED LIST changes: +AMIT10TA6 PO; -AZEL137S EACH NARE; -COLA100C3 PO; -LIDO5DIS35 TOPICAL; +MAGN65TA PO; +MULT-135 PO; -SENN8.6T5 PO; -VITA10003 PO; +VITA20003 PO; -[UNRECOGNIZED DRUG - CODE] PO; +[UNRECOGNIZED DRUG - OTHER] PO; -voltaren gel TOPICAL
[2016-04-29 08:14] VITALS: BP 150/64; PULSE 120; RESP 13; TEMP 99; O2SAT 85
[2016-04-29] MEDS ORDERED: SODIUM CHLORIDE 0.9% FLUSH 5 ML FLUSH IVF PRN (08:30)
--- NOTE | 2016-04-29 08:35 | PD ---
HPI Chief Complaint: Respiratory Symptoms Time Seen by Provider: 08:16 Travel History International Travel<30 days: No Contact w/Intl Traveler<30days: No Traveled to known affect area: No History of Present Illness HPI The patient is a 86-year-old female who presents to the emergency department via EMS for shortness of breath and generalized weakness. The patient states she was admitted to the hospital several days ago and discharged home yesterday after a workup for possible TIA. The patient states she has been short of breath for several days which is progressively worsened. The patient now complains of inability to ambulate, generalized weakness when she stands, and malaise. The patient does have a history of atrial fibrillation and is currently anticoagulated with Eliquis. The patient denies any significant edema lower extremities, chest pain, nausea, vomiting, or abdominal pain. She denies any associated fever. The patient states her primary physician is Dr. Mallory Tejada. The patient denies any history of COPD, CHF, or oxygen dependency. 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) Diabetes: No Diminished Hearing: No Endocrine: No Gastrointestinal Disorders: No Glaucoma: No Genitourinary: No Headaches: No Hepatitis: No Hiatal Hernia: No Hypertension: Yes Immune Disorder: No Musculoskeletal: Yes Neurologic: No Psychiatric: No Reproductive: No Respiratory: Yes Integumentary: No Migraines: No Sickle Cell Disease: No Sleep Apnea: Yes (cpap at night) Thyroid Disease: No Influenza Vaccination: No Past Surgical History Abdominal Surgery: No Cardiac Surgery: Yes (pace maker replaced may 2015 ) Ear Surgery: No Endocrine Surgery: No Eye Surgery: Yes (cataract) Genitourinary Surgery: No Gynecologic Surgery: No Insulin Pump: No Joint Replacement: Yes (hip replaced in 1988) Neurologic Surgery: No Oral Surgery: No Pacemaker: Yes (left chest) Thoracic Surgery: No Other Surgery: Yes Social History Alcohol Use: No Tobacco Use: No Substance Use: No Allergies-Medications (Allergen,Severity, Reaction): Coded Allergies: Sulfa (Verified Allergy, Intermediate, Rash, 04/29/16) Adhesives (Verified Allergy, Unknown, 04/29/16) Latex (Verified Allergy, Unknown, 04/29/16) Uncoded Allergies: PACEMAKER (Adverse Reaction, Severe, NON COMPATIBLE PACEMAKER, 04/27/16) PT HAS [employer] PACMAKER BUT IT IS NOT MR COMPATIBLE AT THIS TIME ?LEADS 04/27/16 [facility] Reported Meds & Prescriptions Reported Meds & Active Scripts Active Hydrocodone-Acetaminophen 10-325 mg Tab 1 Tab PO Q6H PRN not to be filled before 05-09-16 Reported Amitriptyline (Amitriptyline HCl) 10 Mg Tab 10 Mg PO HS Multi Vitamin (Multiple Vitamin) 1 Tab Tab 1 Tab PO DAILY [Ocu Support-Macular] 1 Tab PO BID Magnesium Aspartate (Magnesium) 65 Mg Tab 200 Mg PO BID Vitamin D (Cholecalciferol) 2,000 Unit Tab 2,000 Units PO DAILY Miralax Powder (Polyethylene Glycol 3350 Powder) 17 Gm Powd 17 Gm PO DAILY Mix and dissolve one measuring cap-ful (17 grams) in water or juice. Metoprolol Tartrate 100 Mg Tab 100 Mg PO BID Lipitor (Atorvastatin Calcium) 10 Mg Tab 10 Mg PO HS Aspirin 81 Mg Tabdr 81 Mg PO DAILY Norvasc (Amlodipine Besylate) 5 Mg Tab 5 Mg PO DAILY Eliquis (Apixaban) 2.5 Mg Tab 2.5 Mg PO BID Review of Systems Except as stated in HPI: all other systems reviewed are Neg General / Constitutional: No: Fever HENT: No: Lightheadedness Cardiovascular: No: Chest Pain or Discomfort Respiratory: Positive: Cough, Shortness of Breath Gastrointestinal: No: Nausea, Vomiting, Diarrhea, Abdominal Pain Musculoskeletal: Positive: Weakness, No: Edema Neurologic: Positive: Weakness, No: Dizziness Physical Exam Narrative GENERAL: Awake, alert, pleasant 86-year-old female who appears her stated age and is in mild respiratory distress. SKIN: Warm and dry. HEAD: Atraumatic. Normocephalic. EYES: No injection or drainage. ENT: No nasal bleeding or discharge. Mucous membranes pink and moist. NECK: Trachea midline. No JVD. CARDIOVASCULAR: Regular, tachycardic with a heart rate of 120. RESPIRATORY: No accessory muscle use. Clear to auscultation. Breath sounds equal bilaterally. GASTROINTESTINAL: Abdomen soft, non-tender, nondistended. No rebound tenderness. MUSCULOSKELETAL: Well-healed scar over the anterior aspect of the right knee. Mild edema compared to left leg with tenderness over the left calf. NEUROLOGICAL: Awake and alert. No obvious cranial nerve deficits. Motor grossly within normal limits. Normal speech. 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 PSYCHIATRIC: Appropriate mood and affect; insight and judgment normal. Data Data Last Documented VS Vital Signs Date Time Temp Pulse Resp B/P Pulse Ox O2 Delivery O2 Flow Rate FiO2 04/29/16 08:20 92 Nasal Cannula 3 04/29/16 08:14 99.0 120 13 150/64 Orders Complete Blood Count With Diff (04/29/16 08:17) Comprehensive Metabolic Panel (04/29/16 08:17) B-Type Natriuretic Peptide (04/29/16 08:17) Act Partial Throm Time (Ptt) (04/29/16 08:17) Prothrombin Time / Inr (Pt) (04/29/16 08:17) Magnesium (Mg) (04/29/16 08:17) Ckmb (Isoenzyme) Profile (04/29/16 08:17) Troponin I (04/29/16 08:17) Influenzae A/B Antigen (04/29/16 08:17) Blood Culture (04/29/16 08:17) Iv Access Insert/Monitor (04/29/16 08:17) Electrocardiogram (04/29/16 08:17) Ecg Monitoring (04/29/16 08:17) Oximetry (04/29/16 08:17) Oxygen Administration (04/29/16 08:17) Chest, Single Ap (04/29/16 08:17) Ct Pulmonary Angiogram (04/29/16 08:17) Us Leg Venous Doppler (04/29/16 08:17) Sodium Chloride 0.9% Flush (Ns Flush) (04/29/16 08:30) Resp Blood Gas Venous (04/29/16 ) Blood Gas Venous (Vbg) (04/29/16 08:30) Furosemide Inj (Lasix Inj) (04/29/16 10:15) Admit Order (Ed Use Only) (04/29/16 10:29) Labs Laboratory Tests Test 04/29/16 04/29/16 08:20 08:30 White Blood Count 8.5 TH/MM3 Red Blood Count 3.52 MIL/MM3 Hemoglobin 10.3 GM/DL Hematocrit 30.1 % Mean Corpuscular Volume 85.5 FL Mean Corpuscular Hemoglobin 29.3 PG Mean Corpuscular Hemoglobin 34.3 % Concent Red Cell Distribution Width 14.4 % Platelet Count 233 TH/MM3 Mean Platelet Volume 7.6 FL Neutrophils (%) (Auto) 83.9 % Lymphocytes (%) (Auto) 6.7 % Monocytes (%) (Auto) 6.1 % Eosinophils (%) (Auto) 2.7 % Basophils (%) (Auto) 0.6 % Neutrophils # (Auto) 7.1 TH/MM3 Lymphocytes # (Auto) 0.6 TH/MM3 Monocytes # (Auto) 0.5 TH/MM3 Eosinophils # (Auto) 0.2 TH/MM3 Basophils # (Auto) 0.1 TH/MM3 CBC Comment DIFF FINAL Differential Comment Prothrombin Time 11.8 SEC Prothromb Time International 1.1 RATIO Ratio Activated Partial 32.0 SEC Thromboplast Time Sodium Level 138 MEQ/L Potassium Level 3.6 MEQ/L Chloride Level 103 MEQ/L Carbon Dioxide Level 25.3 MEQ/L Anion Gap 10 MEQ/L Blood Urea Nitrogen 13 MG/DL Creatinine 0.57 MG/DL Estimat Glomerular Filtration 100 ML/MIN Rate Random Glucose 140 MG/DL Calcium Level 7.9 MG/DL Magnesium Level 1.9 MG/DL Total Bilirubin 0.5 MG/DL Aspartate Amino Transf 14 U/L (AST/SGOT) Alanine Aminotransferase 17 U/L (ALT/SGPT) Alkaline Phosphatase 98 U/L Total Creatine Kinase 38 U/L Troponin I LESS THAN 0.02 NG/ML B-Type Natriuretic Peptide 287 PG/ML Total Protein 6.2 GM/DL Albumin 2.5 GM/DL Blood Gas Puncture Site NURSE Blood Gas Patient Temperature 98.6 Venous Blood pH 7.46 Venous Blood Partial Pressure 37 mmHg CO2 Venous Blood Partial Pressure 44 mmHg O2 Venous Blood HCO3 25 mmol/L Venous Blood Oxygen Saturation 78 % Venous Blood Oxygen Content 12.0 Vol % Venous Blood Base Excess 1.8 mmol/L Oxygen Delivery Device NASAL CANNULA Blood Gas Liter Flow 2 L/M [facility] Medical Decision Making Medical Screen Exam Complete: Yes Emergency Medical Condition: Yes Medical Record Reviewed: Yes Interpretation(s) ABG reveals pH 7.455, PCO2 36.5, PO2 43.5 on 2 L, bicarbonate 25.3, base excess 1.8 EKG reveals paced rhythm with a rate of 119. Intraventricular conduction delay with QRS 127 ms. Date/Time Procedure Status Source Growth 04/29/16 08:25 Aerobic Blood Culture Received Blood Peripheral Pending 04/29/16 08:25 Anaerobic Blood Culture Received Blood Peripheral Pending 04/29/16 08:25 Influenza Types A,B Antigen (JUANITA) - Final Complete Nasal Aspirate NEGATIVE FOR FLU A AND B ANTIGEN.... 04/29/16 08:35 Aerobic Blood Culture Received Blood Peripheral Pending 04/29/16 08:35 Anaerobic Blood Culture Received Blood Peripheral Pending Laboratory Tests Test 04/29/16 04/29/16 08:20 08:30 White Blood Count 8.5 TH/MM3 Red Blood Count 3.52 MIL/MM3 Hemoglobin 10.3 GM/DL Hematocrit 30.1 % Mean Corpuscular Volume 85.5 FL Mean Corpuscular Hemoglobin 29.3 PG Mean Corpuscular Hemoglobin 34.3 % Concent Red Cell Distribution Width 14.4 % Platelet Count 233 TH/MM3 Mean Platelet Volume 7.6 FL Neutrophils (%) (Auto) 83.9 % Lymphocytes (%) (Auto) 6.7 % Monocytes (%) (Auto) 6.1 % Eosinophils (%) (Auto) 2.7 % Basophils (%) (Auto) 0.6 % Neutrophils # (Auto) 7.1 TH/MM3 Lymphocytes # (Auto) 0.6 TH/MM3 Monocytes # (Auto) 0.5 TH/MM3 Eosinophils # (Auto) 0.2 TH/MM3 Basophils # (Auto) 0.1 TH/MM3 CBC Comment DIFF FINAL Differential Comment Prothrombin Time 11.8 SEC Prothromb Time International 1.1 RATIO Ratio Activated Partial 32.0 SEC Thromboplast Time Sodium Level 138 MEQ/L Potassium Level 3.6 MEQ/L Chloride Level 103 MEQ/L Carbon Dioxide Level 25.3 MEQ/L Anion Gap 10 MEQ/L Blood Urea Nitrogen 13 MG/DL Creatinine 0.57 MG/DL Estimat Glomerular Filtration 100 ML/MIN Rate Random Glucose 140 MG/DL Calcium Level 7.9 MG/DL Magnesium Level 1.9 MG/DL Total Bilirubin 0.5 MG/DL Aspartate Amino Transf 14 U/L (AST/SGOT) Alanine Aminotransferase 17 U/L (ALT/SGPT) Alkaline Phosphatase 98 U/L Total Creatine Kinase 38 U/L Troponin I LESS THAN 0.02 NG/ML B-Type Natriuretic Peptide 287 PG/ML Total Protein 6.2 GM/DL Albumin 2.5 GM/DL Blood Gas Puncture Site NURSE Blood Gas Patient Temperature 98.6 Venous Blood pH 7.46 Venous Blood Partial Pressure 37 mmHg CO2 Venous Blood Partial Pressure 44 mmHg O2 Venous Blood HCO3 25 mmol/L Venous Blood Oxygen Saturation 78 % Venous Blood Oxygen Content 12.0 Vol % Venous Blood Base Excess 1.8 mmol/L Oxygen Delivery Device NASAL CANNULA Blood Gas Liter Flow 2 L/M CT polar angiogram is negative for pulmonary embolus. Reveals diffuse groundglass opacity in both lungs. Differential includes edema or some form of infectious or hypersensitivity pneumonitis. Small effusions. Mild fibrotic changes in the lungs. Small hiatal hernia. Differential Diagnosis Differential diagnosis includes pulmonary embolism, DVT, pneumonia, congestive heart failure, pulmonary edema, pleural effusion, sepsis, lactic acidosis. Narrative Course IV was established, labs are drawn and sent, and the patient was placed on cardiac telemetry monitoring and continuous pulse oximetry monitoring. Chest x- ray was obtained. Ultrasound left lower extremity was ordered. The patient was tachycardic, hypoxic, with recent admission to hospital, therefore, CT pulmonary angiogram was ordered to evaluate for possible pulmonary embolism while anticoagulated on Eliquis. The patient was placed on oxygen at 3 L which brought her oxygen level up to 96%. VBG was ordered. EKG was ordered and interpreted. Blood culture and lactic acid were sent to lab. I reviewed the patient's EMR, she was hospitalized from the second to the third for altered mental status and had an ultrasound of carotids, CT of the head, chest x-ray which were unremarkable. CT was negative for PE, does reveal diffuse groundglass opacity in both lungs, differential includes edema or some form of infectious or hypersensitivity pneumonitis. Therefore, patient was administered cefepime and Zithromax. I discussed the patient with the on-call residents who agreed with admission. The patient will be admitted for hypoxia with O2 sat of 84% on room air Physician Communication Physician Communication I discussed the patient with the residents who agreed with admission to Dr. Tejada. Diagnosis Primary Impression: Hypoxia Additional Impressions: Dyspnea Qualified Code: R06.02 - Shortness of breath Pulmonary edema Qualified Code: J81.0 - Acute pulmonary edema Condition: Stable Son Marcum MD Apr 29, 2016 08:35
[2016-04-29 08:39] LABS: BLOOD GAS VENOUS BASE EXCESS 1.8 mmol/L (-2-2); BLOOD GAS VENOUS HCO3 25 mmol/L (22-26); BLOOD GAS VENOUS O2 HGB SAT 78 % (70-76); BLOOD GAS VENOUS PCO2 37 mmHg (44-48); BLOOD GAS VENOUS PO2 44 mmHg (35-40); BLOOD GAS VENOUS pH 7.46 (7.360-7.400); CRITICAL VALUE NO; DRAW SITE NURSE; LITER FLOW 2 L/M; OXYGEN DEVICE NASAL CANNULA; STAT YES; TEMP CORR TO 98.6
[2016-04-29 08:53] LABS: AUTOMATED NEUTROPHIL # 7.1 TH/MM3 (1.8-7.7); BASOPHIL # 0.1 TH/MM3 (0-0.2); BASOPHIL % 0.6 % (0.0-2.0); EOSINOPHIL # 0.2 TH/MM3 (0-0.4); EOSINOPHIL % 2.7 % (0.0-4.0); HEMATOCRIT 30.1 % (35.0-46.0); HEMO FLAGS DIFF FINAL; LYMPH % 6.7 % (9.0-44.0); LYMPHOCYTE # 0.6 TH/MM3 (1.0-4.8); MEAN CELL VOLUME 85.5 FL (80.0-100.0); MEAN CORPUSCULAR HEMOGLOBIN 29.3 PG (27.0-34.0); MEAN CORPUSCULAR HGB CONC 34.3 % (32.0-36.0); MONO % 6.1 % (0.0-8.0); NEUT % 83.9 % (16.0-70.0); PLATELET COUNT 233 TH/MM3 (150-450); RED BLOOD COUNT 3.52 MIL/MM3 (4.00-5.30); RED CELL DISTRIBUTION WIDTH 14.4 % (11.6-17.2); WHITE BLOOD COUNT 8.5 TH/MM3 (4.0-11.0)
[2016-04-29 09:02] LABS: INTERNATIONAL NORMALIZED RATIO 1.1 RATIO; PROTHROMBIN TIME - PATIENT 11.8 SEC (9.8-11.6)
--- NOTE | 2016-04-29 09:08 | RADRPT ---
EXAM DATE/TIME: 04/29/2016 08:46 [facility] COMPARISON: CHEST SINGLE AP, April 27, 2016, 10:41. INDICATIONS : SOB, Weakness MEDICAL HISTORY : Hypertension. Cardiovascular disease. SURGICAL HISTORY : None. ENCOUNTER: Initial ACUITY: 1 day PAIN SCORE: 0/10 LOCATION: chest FINDINGS: The heart is mildly enlarged. There are interstitial changes. There are minimal bilateral effusions. Exam would suggest CHF. This is stable compared to previous dated 04/27/16. The visualized bony struct ures are grossly intact. There is a transvenous pacer in place. CONCLUSION: Probable CHF. Elliott Gonzalez MD on April 29, 2016 at 9:05 Board Certified Radiologist. This report was verified electronically.
[2016-04-29 09:20] LABS: ALKALINE PHOSPHATASE 98 U/L (45-117); ALT (GPT) 17 U/L (10-53); ANION GAP 10 MEQ/L (5-15); AST (GOT) 14 U/L (15-37); BICARBONATE 25.3 MEQ/L (21.0-32.0); BLOOD UREA NITROGEN 13 MG/DL (7-18); CHLORIDE 103 MEQ/L (98-107); GLOMERULAR FILTRATION RATE 100 ML/MIN (>89); MAGNESIUM 1.9 MG/DL (1.5-2.5); POTASSIUM 3.6 MEQ/L (3.5-5.1); SODIUM (NA) 138 MEQ/L (136-145); TOTAL BILIRUBIN ADULT 0.5 MG/DL (0.2-1.0)
[2016-04-29 09:27] LABS: CREATINE KINASE 38 U/L (26-192)
--- NOTE | 2016-04-29 09:39 | RADRPT ---
EXAM DATE/TIME: 04/29/2016 09:16 [facility] COMPARISON: No previous studies available for comparison. INDICATIONS : Swelling in left lower extremity. MEDICAL HISTORY : Hypercholesterolemia. Hypertension. Arthritis. Cataract. Cerebrovascular acc ident. A.FIB. Anticoagulant therapy. Sleep apnea. SURGICAL HISTORY : Pacemaker. Total left hip replacement. Knee surgery. ENCOUNTER: Initial ACUITY: 1 day PAIN SCORE: 0/10 LOCATION: Left leg. TECHNIQUE: Venous ultrasound of the leg was performed from the inguinal ligament to the proximal calf. Real-time, color Doppler and spectral tracing, compression and augmentation techniques were us ed. FINDINGS: There is normal compressibility of the deep venous system from the inguinal region to the proximal ca lf. No echogenic clot is seen in the lumen of the common femoral, femoral, popliteal, and posterior tibial veins. There is a normal response of the venous system to proximal and distal augmentation an d respiration. CONCLUSION: Negative for deep venous thrombosis. Regulo Gonzalez MD FACR on April 29, 2016 at 9:37 Board Certified Radiologist. This report was verified electronically.
[2016-04-29] MEDS ORDERED: FUROSEMIDE 20 MG/2 ML VIAL IV PUSH ONE (10:15)
[2016-04-29] MEDS ORDERED: IOHEXOL 350 MG/ML 10 ML VIAL (for RAD DIAG) IV ONE (10:35)
--- NOTE | 2016-04-29 10:56 | RADRPT ---
EXAM DATE/TIME: 04/29/2016 10:18 [facility] COMPARISON: No previous studies available for comparison. INDICATIONS : Shortness of breath, hypoxia. IV CONTRAST: 48 cc Omnipaque 350 (iohexol) IV RADIATION DOSE: 9.3 CTDIvol (mGy) MEDICAL HISTORY : Cardiovascular disease. SURGICAL HISTORY : None. ENCOUNTER: Initial ACUITY: 2 days PAIN SCALE: 0/10 LOCATION: chest TECHNIQUE: Volumetric scanning of the chest was performed using a pulmonary embolism protocol MIP images were re constructed. Using automated exposure control and adjustment of the mA and/or kV according to patien t size, radiation dose was kept as low as reasonably achievable to obtain optimal diagnostic quality images. FINDINGS: No filling defects identified within the pulmonary arteries. There is diffuse groundglass opacity in the lungs. Differential diagnosis includes edema and a mild p neumonia. Some form of hypersensitivity reaction could give this appearance as well. There are small bilateral pleural effusions. No adenopathy. No acute findings in the upper abdomen. Pacer leads in ri ght atrium and right ventricle. CONCLUSION: 1. Negative for pulmonary embolus. 2. Diffuse ground glass opacity in both lungs. Differential diagnosis includes edema or some form of infectious or hypersensitivity pneumonitis. Small effusions. Mild fibrotic changes in the lungs. 3. Small hiatal hernia. Pancho Lee MD on April 29, 2016 at 10:48 Board Certified Radiologist. This report was verified electronically.
--- NOTE | 2016-04-29 11:09 | HHI.HP ---
[facility] Service Family Medicine Primary Care Physician Jose Daniel Tejada MD Admission Diagnosis hypoxia, dyspnea, congestive heart failure Diagnoses: International Travel<30 Days: No Contact w/Intl Traveler<30days: No Known Affected Area: No History of Present Illness Patient is an 86-year-old woman who was recently discharged from our service who returned to the emergency department this morning. She reports that she was trying to get out of bed to bedside commode, but she couldn't stand, which is the same chief complaint that she presented with on prior admission. She endorses feeling more tired lately. Pt presented to the ED with O2 sat's of 84% on RA and some asymmetric leg swelling. Ultrasound of the leg ruled out DVT. CTA ruled out PE but was concerning for edema versus pneumonitis. Patient started on antibiotics and oxygen. (Yasir Schofield MD R1) Review of Systems ROS Limitations: Poor Historian (Yasir Schofield MD R1) Past Family Social History Past Medical History Hypertension Atrial fibrillation Elevated cholesterol Obstructive sleep apnea Dry eye 3 para 2 AB 1 Childhood illnesses: Chickenpox, measles, mumps Other Physicians/Providers Involved in the Care of Patient:Angela Villarreal [place] - Tester Regulator Health Maintenance: Refuses flu shot Colonoscopy 2007 Mammogram 2012 Recently sent in [employer] Prevnar 13 October 23, 2014 Past Surgical History 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 November 1999 Fracture knee 2000 Carotid left endarterectomy 2013 Reported Medications Last Reconciled on 03/10/16 12:49 by JOSE DANIEL TEJADA Azelastine-Fluticasone Nasal Lynn (Dymista Nasal Lynn)137-50 Mcg Spray1 Lynn EACH NARE DAILY #1 BOTTLE Ref 0 Reported 03/10/16 Polyethylene Glycol 3350 Powder (Miralax Powder)17 Gm Powd17 Gm PO DAILY #1 BOTTLE Ref 0 Reported 03/10/16 Sennosides (Senna)8.6 Mg Tab8.6 Mg PO HS PRN (Constipation) #60 TAB Ref 0 Reported 03/10/16 Metoprolol Tartrate 100 Mg Fzp252 Mg PO BID #60 TAB Ref 0 Reported 03/10/16 Lflslw-Wozkkhicdl-Gdwzesvw (Viteyes Essentials)15-4.75-100 Mg-Mg-Mcg Cap1 Cap PO DAILY Ref 0 Reported 03/10/16 Docusate Sodium (Colace)100 Mg App304 Mg PO DAILY #30 CAP Ref 0 Reported 03/10/16 Cholecalciferol (Vitamin D-3)1,000 Unit Tab2,000 Units PO DAILY #30 TAB Ref 0 Reported 03/10/16 Atorvastatin (Lipitor)10 Mg Tab10 Mg PO HS #30 TAB Ref 0 Reported 03/10/16 Aspirin 81 Mg Tabdr81 Mg PO DAILY Reported 03/10/16 Amlodipine (Norvasc)5 Mg Tab5 Mg PO DAILY #30 TAB Ref 0 Reported 03/10/16 Lidocaine Patch 12 HR (Lidoderm Patch 12 HR)5% Patch2 Patch TOPICAL DAILY #120 BOX Ref 0 Reported 03/10/16 Apixaban (Eliquis)2.5 Mg Tab2.5 Mg PO BID #60 TAB Ref 0 Reported 03/10/16 Hydrocodone-Acetaminophen 10-325 mg Tab1 Tab PO Q6H PRN (PAIN) #120 TAB Ref 0 Prov: Jose Daniel Tejada MD 03/10/16 [voltaren gel] No Conflict Check1 Ml TOPICAL TID #100 Ref 3 Prov: Jose Daniel Tejada MD 12/17/15 Amytriptiline 10mg po qhs (Yasir Schofield MD R1) Allergies: Coded Allergies: Sulfa (Verified Allergy, Intermediate, Rash, 04/29/16) Adhesives (Verified Allergy, Unknown, 04/29/16) Latex (Verified Allergy, Unknown, 04/29/16) Uncoded Allergies: PACEMAKER (Adverse Reaction, Severe, NON COMPATIBLE PACEMAKER, 04/27/16) PT HAS Polar OLED PACMAKER BUT IT IS NOT MR COMPATIBLE AT THIS TIME ?LEADS 04/27/16 VSV Active Ordered Medications Current Medications Medications (Trade) Dose Ordered Sig/Salvador Route Start Time Stop Time Status Last Admin (NS Flush) 2 ml UNSCH PRN FLUSH 04/29/16 11:15 (NS Flush) 2 ml BID FLUSH 04/29/16 21:00 (Tylenol) 650 mg Q4H PRN PO 04/29/16 11:15 (Zofran Inj) 4 mg Q6H PRN IVP 04/29/16 11:15 (Narcan Inj) 0.4 mg UNSCH PRN IV 04/29/16 11:15 (Elavil) 10 mg HS PO 04/29/16 21:00 (Norvasc) 5 mg DAILY PO 04/30/16 09:00 (Eliquis) 2.5 mg BID PO 04/29/16 21:00 (Ecotrin Ec) 81 mg DAILY PO 04/30/16 09:00 (Lipitor) 10 mg HS PO 04/29/16 21:00 (Banks 10-325 Mg) 1 tab Q6H PRN PO 04/29/16 15:45 04/29/16 16:05 (Lopressor) 100 mg BID PO 04/29/16 21:00 (Miralax) 17 gm DAILY PO 04/30/16 09:00 Family History Father: at age 63 with history of alcoholism, esophageal cancer, and tobacco use Mother: in mid 70s with alcoholism, osteoporosis, emphysema and congestive heart failure Siblings: Brother at age 54 of a drug overdose and alcoholism Children: Son after atrial septal defect heart surgery at the age of 5, daughter, living and well status post endometrial cancer in 1998 Social History Marital Status: for 25 years Living Situation: Lives in [place] Education: high school 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 SKIN: No rashes, ecchymoses or lesions. Cool and dry. HEAD: Atraumatic. Normocephalic. EYES: Pupils equal round and reactive. Extraocular motions intact. No scleral icterus. No injection or drainage. ENT: Nose without bleeding, purulent drainage. Throat without erythema, tonsillar hypertrophy or exudate. Uvula midline. Airway patent. NECK: Trachea midline. No JVD or lymphadenopathy. Supple, nontender, no meningeal signs. CARDIOVASCULAR: Regular rate and rhythm without murmurs, gallops, or rubs. RESPIRATORY: Clear to auscultation. Breath sounds equal bilaterally. No wheezes , rales, or rhonchi. GASTROINTESTINAL: Abdomen soft, non-tender, nondistended. No guarding. MUSCULOSKELETAL: Extremities without clubbing, cyanosis, or edema. No joint tenderness, effusion, or edema noted. No calf tenderness. No fifth toes BL. Surgical scars on feet. NEUROLOGICAL: Awake and alert. Cranial nerves II through XII grossly intact. Motor and sensory grossly within normal limits. Normal speech. Laboratory Laboratory Tests Test 04/29/16 04/29/16 08:20 08:30 White Blood Count 8.5 Red Blood Count 3.52 Hemoglobin 10.3 Hematocrit 30.1 Mean Corpuscular Volume 85.5 Mean Corpuscular Hemoglobin 29.3 Mean Corpuscular Hemoglobin 34.3 Concent Red Cell Distribution Width 14.4 Platelet Count 233 Mean Platelet Volume 7.6 Neutrophils (%) (Auto) 83.9 Lymphocytes (%) (Auto) 6.7 Monocytes (%) (Auto) 6.1 Eosinophils (%) (Auto) 2.7 Basophils (%) (Auto) 0.6 Neutrophils # (Auto) 7.1 Lymphocytes # (Auto) 0.6 Monocytes # (Auto) 0.5 Eosinophils # (Auto) 0.2 Basophils # (Auto) 0.1 CBC Comment DIFF FINAL Differential Comment Prothrombin Time 11.8 Prothromb Time International 1.1 Ratio Activated Partial 32.0 Thromboplast Time Sodium Level 138 Potassium Level 3.6 Chloride Level 103 Carbon Dioxide Level 25.3 Anion Gap 10 Blood Urea Nitrogen 13 Creatinine 0.57 Estimat Glomerular Filtration 100 Rate Random Glucose 140 Calcium Level 7.9 Magnesium Level 1.9 Total Bilirubin 0.5 Aspartate Amino Transf 14 (AST/SGOT) Alanine Aminotransferase 17 (ALT/SGPT) Alkaline Phosphatase 98 Total Creatine Kinase 38 Troponin I LESS THAN 0.02 B-Type Natriuretic Peptide 287 Total Protein 6.2 Albumin 2.5 Blood Gas Puncture Site NURSE Blood Gas Patient Temperature 98.6 Venous Blood pH 7.46 Venous Blood Partial Pressure 37 CO2 Venous Blood Partial Pressure 44 O2 Venous Blood HCO3 25 Venous Blood Oxygen Saturation 78 Venous Blood Oxygen Content 12.0 Venous Blood Base Excess 1.8 Oxygen Delivery Device NASAL CANNULA Blood Gas Liter Flow 2 Date/Time Procedure Status Source Growth 04/29/16 08:35 Aerobic Blood Culture Received Blood Peripheral Pending 04/29/16 08:35 Anaerobic Blood Culture Received Blood Peripheral Pending 04/29/16 08:25 Influenza Types A,B Antigen (JUANITA) - Final Complete Nasal Aspirate NEGATIVE FOR FLU A AND B ANTIGEN.... (Yasir Schofield MD R1) Result Diagram: 04/29/1681904/29/16819 Imaging Last Impressions Lower Extremity Ultrasound 04/29/16816 Signed Impressions: Service Date/Time: Friday, April 29, 2016 09:16 - CONCLUSION: Negative for deep venous thrombosis. Regulo Gonzalez MD FACR Chest X-Ray 04/29/16816 Signed Impressions: Service Date/Time: Friday, April 29, 2016 08:46 - CONCLUSION: Probable CHF. Elliott Gonzalez MD CT Angiography 04/29/16816 Signed Impressions: Service Date/Time: Friday, April 29, 2016 10:18 - CONCLUSION: 1. Negative for pulmonary embolus. 2. Diffuse ground glass opacity in both lungs. Differential diagnosis includes edema or some form of infectious or hypersensitivity pneumonitis. Small effusions. Mild fibrotic changes in the lungs. 3. Small hiatal hernia. Pancho Lee MD Course In the emergency department, patient had a venous blood gas, ultrasound of the leg, CT pulmonary angiogram, chest x-ray, oxygen administered by nasal cannula, EKG, blood culture, influenza A and B, troponin, CK-MB, magnesium, PT/INR, APTT , BNP, CMP, CBC, Lasix 20 mg IV push 1, azithromycin IV 1, cefepime IV 1 ( Yasir Schofield MD R1) Assessment and Plan Assessment and Plan Pt presented to the ED with a chief complaint of lower extremity weakness, found to have O2 sat's of 84% on RA and some asymmetric leg swelling. Ultrasound of the leg ruled out DVT. CTA ruled out PE but was concerning for edema versus pneumonitis. Patient placed in observation for the administration of antibiotics and oxygen. Code Status Full code Discussed Condition With Patient seen and discussed with Dr. Jose Daniel Tejada. (Yasir Schofield MD R1) Attending Attestation Patient seen and examined. Case reviewed and discussed with the resident team. Agree with plan of care as discussed with me and documented in the resident note. (Jose Daniel Tejada MD) Problem List: (1) Hypoxia Status: Acute Plan: Patient presented with hypoxia to 84% on room air. In emergency department, patient saturation ilir to low 90s with administration of oxygen by nasal cannula. By the time we saw her in the emergency department, she was satting 98% on nasal cannula. Placed in observation Admission oxygen as needed CBC, BMP in the morning Continue antibiotics azithromycin, cefepime for possible pneumonia started on -Azithromycin 500 mg IV daily -Cefepime 2 g IV every 12 hours Follow-up blood culture Monitor vital signs Incentive spirometer (2) Weakness of both legs Status: Acute Plan: Patient presented with chief complaint of lower extremity weakness and inability to stand this morning. Consult physical therapy (3) Nutrition, metabolism, and development symptoms Status: Acute Plan: Fluids: Not indicated at this time Electrolytes: Monitor and replete as necessary Nutrition: Regular basic diet Continue home medications for chronic medical problems: (1) Knee pain, chronic Status: Chronic Plan: Patient mostly stable on home medications. Continue home medications as below: Banks 325-10 mg on tab by mouth every 8 hours when necessary for pain MiraLAX 17 g by mouth daily for opioid-induced constipation Amitriptyline 10 mg by mouth daily at bedtime to help with sleep and chronic pain (2) Atrial fibrillation, chronic Status: Chronic Plan: Continue home medications. Apixaban 2.5 mg by mouth twice a day Aspirin 81 mg by mouth daily Metoprolol tartrate 100 mg by mouth twice a day (3) Hypertension Status: Chronic Plan: Patient mostly stable on home medications. Continue home medications as below: Amlodipine 5 mg by mouth daily Metoprolol as above (4) HLD (hyperlipidemia) Status: Chronic Plan: Continue home medication. Atorvastatin 10 mg by mouth daily at bedtime (5) Pacemaker Status: Chronic Plan: No MRI or MRA because of metal components of patient's pacemaker. (4) No contraindication to deep vein thrombosis (DVT) prophylaxis Status: Acute Plan: Bilateral SCDs (Yasir Schofield MD R1) Yasir Schofield MD R1 Apr 29, 2016 11:09 Jose Daniel Tejada MD Apr 30, 2016 13:22
[2016-04-29] MEDS ORDERED: ACETAMINOPHEN 325 MG TAB PO PRN (11:15)
[2016-04-29] MEDS ORDERED: CEFEPIME INJ 2,000 MG in SODIUM CHLORIDE 0.9% INJ 100 ML IV ONE (11:15)
[2016-04-29] MEDS ORDERED: NALOXONE HCL 0.4 MG/ML AMP IV PRN (11:15)
[2016-04-29] MEDS ORDERED: AZITHROMYCIN INJ 500 MG in SODIUM CHLOR 0.9% 250 ML INJ 250 ML IV ONE (11:15)
[2016-04-29] MEDS ORDERED: SODIUM CHLORIDE 0.9% FLUSH 5 ML FLUSH FLUSH PRN (11:15)
[2016-04-29] MEDS ORDERED: ONDANSETRON HCL 4 MG/2 ML VIAL IVP PRN (11:15)
[2016-04-29 11:51] VITALS: O2SAT 97
--- NOTE | 2016-04-29 12:25 | EKG ---
Date Performed: 04/29/2016 Time Performed: 08:55:35 PTAGE: 86 years EKG: ELECTRONIC ATRIAL PACEMAKER POSSIBLE RIGHT VENTRICULAR HYPERTROPHY POSSIBLE ANTERIOR MYOCAR DIAL INFARCTION ABNORMAL ECG PREVIOUS TRACING : 04/27/2016 09.33 DOCTOR: Simon Dooley Interpretating Date/Time 04/29/2016 12:21:25
[2016-04-29 12:26] VITALS: BP 131/63; PULSE 121; RESP 18; O2SAT 97
--- NOTE | 2016-04-29 12:26 | HHI.FPPN ---
Subjective Remarks Patient seen, examined and discussed with Dr. Schofield and Eliana Vicente, MS 4 This is an 86-year-old female who is cared for at home by her daughter who is an RN. She was brought back to the emergency department today because of generalized weakness and shortness of breath. Apparently she has felt short of breath for days although this did not become apparent to us in her last admission. Patient thinks she should stay in the hospital for 3 days and then go to rehabilitation because she is a burden on her daughter. She denies symptoms of nausea, vomiting, abdominal pain, chest pain, fever, chills, sweats. She has no history of COPD, CHF, or oxygen dependency. At her last admission, daughter had reported the weakness, as being unable to get out of a chair without assistance, as well as a few spells of 10-15 seconds of apnea. See history and physical examination for this admission for additional historical information including past, family and social history. Complete review of systems was obtained and other than as noted above, all systems were negative. Objective Vitals Vital Signs Date Time Temp Pulse Resp B/P Pulse Ox O2 Delivery O2 Flow Rate FiO2 04/29/16 11:51 3.00 04/29/16 11:51 97 Nasal Cannula 3.00 04/29/16 08:20 92 Nasal Cannula 3 04/29/16 08:14 99.0 120 13 150/64 85 Result Diagram: 04/29/16 0820 04/29/16 0820 Other Results Laboratory Tests Test 04/29/16 04/29/16 08:20 08:30 White Blood Count 8.5 TH/MM3 Red Blood Count 3.52 MIL/MM3 Hemoglobin 10.3 GM/DL Hematocrit 30.1 % Mean Corpuscular Volume 85.5 FL Mean Corpuscular Hemoglobin 29.3 PG Mean Corpuscular Hemoglobin 34.3 % Concent Red Cell Distribution Width 14.4 % Platelet Count 233 TH/MM3 Mean Platelet Volume 7.6 FL Neutrophils (%) (Auto) 83.9 % Lymphocytes (%) (Auto) 6.7 % Monocytes (%) (Auto) 6.1 % Eosinophils (%) (Auto) 2.7 % Basophils (%) (Auto) 0.6 % Neutrophils # (Auto) 7.1 TH/MM3 Lymphocytes # (Auto) 0.6 TH/MM3 Monocytes # (Auto) 0.5 TH/MM3 Eosinophils # (Auto) 0.2 TH/MM3 Basophils # (Auto) 0.1 TH/MM3 CBC Comment DIFF FINAL Differential Comment Prothrombin Time 11.8 SEC Prothromb Time International 1.1 RATIO Ratio Activated Partial 32.0 SEC Thromboplast Time Sodium Level 138 MEQ/L Potassium Level 3.6 MEQ/L Chloride Level 103 MEQ/L Carbon Dioxide Level 25.3 MEQ/L Anion Gap 10 MEQ/L Blood Urea Nitrogen 13 MG/DL Creatinine 0.57 MG/DL Estimat Glomerular Filtration 100 ML/MIN Rate Random Glucose 140 MG/DL Calcium Level 7.9 MG/DL Magnesium Level 1.9 MG/DL Total Bilirubin 0.5 MG/DL Aspartate Amino Transf 14 U/L (AST/SGOT) Alanine Aminotransferase 17 U/L (ALT/SGPT) Alkaline Phosphatase 98 U/L Total Creatine Kinase 38 U/L Troponin I LESS THAN 0.02 NG/ML B-Type Natriuretic Peptide 287 PG/ML Total Protein 6.2 GM/DL Albumin 2.5 GM/DL Blood Gas Puncture Site NURSE Blood Gas Patient Temperature 98.6 Venous Blood pH 7.46 Venous Blood Partial Pressure 37 mmHg CO2 Venous Blood Partial Pressure 44 mmHg O2 Venous Blood HCO3 25 mmol/L Venous Blood Oxygen Saturation 78 % Venous Blood Oxygen Content 12.0 Vol % Venous Blood Base Excess 1.8 mmol/L Oxygen Delivery Device NASAL CANNULA Blood Gas Liter Flow 2 L/M Imaging Last Impressions Lower Extremity Ultrasound 04/29/16816 Signed Impressions: Service Date/Time: Friday, April 29, 2016 09:16 - CONCLUSION: Negative for deep venous thrombosis. Regulo Gonzalez MD FACR Chest X-Ray 04/29/16816 Signed Impressions: Service Date/Time: Friday, April 29, 2016 08:46 - CONCLUSION: Probable CHF. Elliott Gonzalez MD CT Angiography 04/29/16816 Signed Impressions: Service Date/Time: Friday, April 29, 2016 10:18 - CONCLUSION: 1. Negative for pulmonary embolus. 2. Diffuse ground glass opacity in both lungs. Differential diagnosis includes edema or some form of infectious or hypersensitivity pneumonitis. Small effusions. Mild fibrotic changes in the lungs. 3. Small hiatal hernia. Pancho Lee MD Objective Remarks O. CONSTITUTIONAL/GEN: normally nourished, in NAD, wearing oxygen at 3 L/m. When seen, her oxygen saturation is 99%. Alert, clear thinking. EYES: conjunctiva normal, PERRLA, EOMI. ENT: Mouth and pharynx normal. NECK: Supple, carotids symmetrical. LUNGS: Bibasilar fine crackles, upper lung xie clear bilaterally. CARDIOVASCULAR: RR without murmur or gallop. No significant edema. GI/ABD: soft without masses, without organomegaly. Active bowel sounds NEURO: No focal deficits. SKIN: color normal, no rashes noted. HEME/LYMPH: no bruising, petechia or significant adenopathy MUSC: back is normal in appearance. Extremities are normal in appearance. PSYCH/MENTAL STATUS: Alert and oriented x 3. A/P Assessment and Plan 86 yo with hypoxia and weakness, no history of CHF or COPD or O2 dependency; concern for mild CHF or pneumonitis Attending Attestation Patient seen and examined. Case reviewed and discussed with the resident team. Agree with plan of care as discussed with me and documented in the resident note. Mallory Tejada MD Apr 29, 2016 12:26
[2016-04-29 15:59] VITALS: BP 166/77; PULSE 122; RESP 20; O2SAT 95
[2016-04-29] MEDS: ACETAMINOPHEN/HYDROcodone 325 MG/10 MG TAB PO PRN (16:05)
[2016-04-29] MEDS ORDERED: [UNRECOGNIZED DRUG - OTHER] PO SCH (21:00)
[2016-04-29] MEDS ORDERED: MAGNESIUM ASPARTATE PO SCH (21:00)
[2016-04-29 21:19] VITALS: BP 162/78; PULSE 104; RESP 20; TEMP 97.3; O2SAT 93
[2016-04-29] MEDS: AMITRIPTYLINE HCL 10 MG TAB PO SCH (22:31)
[2016-04-29] MEDS: SODIUM CHLORIDE 0.9% FLUSH 5 ML FLUSH FLUSH SCH (22:31)
[2016-04-29] MEDS: METOPROLOL TARTRATE 100 MG TAB PO SCH (22:32)
[2016-04-29] MEDS: ATORVASTATIN 10 MG TAB PO SCH (22:32)
[2016-04-29] MEDS: APIXABAN 2.5 MG TABLET PO SCH (22:32)
[2016-04-29] MEDS: CEFEPIME INJ 2,000 MG in SODIUM CHLORIDE 0.9% INJ 100 ML IV SCH (22:34)
[2016-04-29 23:56] VITALS: BP 181/70; PULSE 105; RESP 20; TEMP 97.4; O2SAT 93
[2016-04-30] VITALS (9 sets, daily range): BP systolic 118–148; BP diastolic 57–88; PULSE 84–120; RESP 18–20; TEMP 97.3–99.1; O2SAT 93–99
[2016-04-30 07:48] LABS: AUTOMATED NEUTROPHIL # 6.2 TH/MM3 (1.8-7.7); BASOPHIL # 0.1 TH/MM3 (0-0.2); BASOPHIL % 0.7 % (0.0-2.0); EOSINOPHIL # 0.1 TH/MM3 (0-0.4); EOSINOPHIL % 1.5 % (0.0-4.0); HEMATOCRIT 30.2 % (35.0-46.0); HEMO FLAGS DIFF FINAL; LYMPH % 12.2 % (9.0-44.0); LYMPHOCYTE # 0.9 TH/MM3 (1.0-4.8); MEAN CELL VOLUME 84.9 FL (80.0-100.0); MEAN CORPUSCULAR HEMOGLOBIN 28.9 PG (27.0-34.0); MEAN CORPUSCULAR HGB CONC 34.1 % (32.0-36.0); MONO % 6.6 % (0.0-8.0); PLATELET COUNT 241 TH/MM3 (150-450); RED BLOOD COUNT 3.55 MIL/MM3 (4.00-5.30); RED CELL DISTRIBUTION WIDTH 14.5 % (11.6-17.2); WHITE BLOOD COUNT 7.8 TH/MM3 (4.0-11.0)
[2016-04-30 08:12] LABS: BICARBONATE 28.1 MEQ/L (21.0-32.0); POTASSIUM 3.4 MEQ/L (3.5-5.1)
[2016-04-30] MEDS: SODIUM CHLORIDE 0.9% FLUSH 5 ML FLUSH FLUSH SCH ×2 (09:17→21:31)
[2016-04-30] MEDS: POLYETHYLENE GLYCOL 17 GM PKG PO SCH (09:17)
[2016-04-30] MEDS: ASPIRIN EC 81 MG TABEC PO SCH (09:18)
[2016-04-30] MEDS: METOPROLOL TARTRATE 100 MG TAB PO SCH ×2 (09:18→21:32)
[2016-04-30] MEDS: amLODIPine BESYLATE 5 MG TAB PO SCH (09:18)
[2016-04-30] MEDS: ACETAMINOPHEN/HYDROcodone 325 MG/10 MG TAB PO PRN ×2 (09:21→17:04)
--- NOTE | 2016-04-30 10:17 | HHI.FPPN ---
Subjective Remarks The patient is doing better this morning. CTA reviewed. Negative for pulmonary embolus but there is diffuse groundglass opacity in both lungs. Differential including edema or some form of infectious/hypersensitivity pneumonitis. With this information, her daughter states she has recently cleaned her carpet with a new truck cleaner last week. She also reports that after taking antibiotics last night her mom and less confused and improved quite rapidly. She states they would like her to go to a [facility]-way facility [facility] to stay for a few weeks. Breathing better, no chest pain, nausea, vomiting, diarrhea. (Niranjan Tejada MD R2) Objective Vitals Vital Signs Date Time Temp Pulse Resp B/P Pulse Ox O2 Delivery O2 Flow Rate FiO2 04/30/16 08:00 99.1 93 18 128/76 99 04/30/16 03:59 97.4 105 20 134/71 93 04/30/16 00:37 148/71 04/29/16 23:56 97.4 105 20 181/70 93 04/29/16 21:19 97.3 104 20 162/78 93 04/29/16 15:59 122 20 166/77 95 Nasal Cannula 3 04/29/16 12:26 121 18 131/63 97 Nasal Cannula 3 04/29/16 11:51 3.00 04/29/16 11:51 97 Nasal Cannula 3.00 I/O 04/29/16 04/29/16 04/29/16 04/30/16 04/30/16 04/30/16 07:00 15:00 23:00 07:00 15:00 23:00 Intake Total 350 ml Output Total 400 ml Balance -50 ml Intake IV Total 350 ml Output Urine Total 400 ml (Niranjan Tejada MD R2) Result Diagram: 04/30/16 0620 04/30/16619 Imaging Last Impressions Lower Extremity Ultrasound 04/29/16816 Signed Impressions: Service Date/Time: Friday, April 29, 2016 09:16 - CONCLUSION: Negative for deep venous thrombosis. Regulo Gonzalez MD FACR Chest X-Ray 04/29/16816 Signed Impressions: Service Date/Time: Friday, April 29, 2016 08:46 - CONCLUSION: Probable CHF. Elliott Gonzalez MD CT Angiography 04/29/16816 Signed Impressions: Service Date/Time: Friday, April 29, 2016 10:18 - CONCLUSION: 1. Negative for pulmonary embolus. 2. Diffuse ground glass opacity in both lungs. Differential diagnosis includes edema or some form of infectious or hypersensitivity pneumonitis. Small effusions. Mild fibrotic changes in the lungs. 3. Small hiatal hernia. Pancho Lee MD Objective Remarks O. CONSTITUTIONAL/GEN: normally nourished, in NAD, wearing oxygen.. Alert, clear thinking. EYES: conjunctiva normal, PERRLA, EOMI. ENT: Mouth and pharynx normal. NECK: Supple, carotids symmetrical. LUNGS: Bibasilar fine crackles, upper lung xie clear bilaterally. CARDIOVASCULAR: RR without murmur or gallop. No significant edema. GI/ABD: soft without masses, without organomegaly. Active bowel sounds NEURO: No focal deficits. SKIN: color normal, no rashes noted. HEME/LYMPH: no bruising, petechia or significant adenopathy MUSC: back is normal in appearance. Extremities are normal in appearance. PSYCH/MENTAL STATUS: Alert and oriented x 3. (Niranjan Tejada MD R2) A/P Assessment and Plan Pt presented to the ED with a chief complaint of lower extremity weakness, found to have O2 sat's of 84% on RA and some asymmetric leg swelling. CTA ruled out PE but was concerning for edema versus pneumonitis. Patient will be admitted for antibiotic therapy, case management consult, and likely discharge to a half-way facility after 3 midnights. Discharge Planning Likely after 3 midnight to a half-way facility. Patient's daughter would like to go to [facility] Case management consult for discharge planning. (Niranjan Tejada MD R2) Attending Attestation Patient seen and examined. Case reviewed and discussed with the resident team. Agree with plan of care as discussed with me and documented in the resident note. (Mallory Tejada MD) Problem List: (1) Pneumonitis Status: Acute Plan: CTA shows diffuse ground glass appearing lungs. Differential includes infectious versus hypersensitivity pneumonitis. In the event this is hypersensitivity pneumonitis, this could be secondary to the new truck cleaner the patient's daughter has used on the carpet. We'll recommend decreasing exposures to possible inciting extrinsic allergic factors. Continue antibiotics azithromycin, cefepime for possible pneumonia started on -Azithromycin 500 mg IV daily -Cefepime 2 g IV every 12 hours Follow-up blood culture Monitor vital signs Incentive spirometer -Oxygen when necessary satting less than 94%. (2) Hypoxia Status: Acute Plan: Improved with oxygen. see pneumonitis above (3) Weakness of both legs Status: Acute Plan: Patient presented with chief complaint of lower extremity weakness and inability to stand this morning. Consult physical therapy (4) Nutrition, metabolism, and development symptoms Status: Acute Plan: Fluids: Not indicated at this time Electrolytes: Monitor and replete as necessary Nutrition: Regular basic diet Continue home medications for chronic medical problems: (1) Knee pain, chronic Status: Chronic Plan: Patient mostly stable on home medications. Continue home medications as below: [place] 325-10 mg on tab by mouth every 8 hours when necessary for pain MiraLAX 17 g by mouth daily for opioid-induced constipation Amitriptyline 10 mg by mouth daily at bedtime to help with sleep and chronic pain (2) Atrial fibrillation, chronic Status: Chronic Plan: Continue home medications. Apixaban 2.5 mg by mouth twice a day Aspirin 81 mg by mouth daily Metoprolol tartrate 100 mg by mouth twice a day (3) Hypertension Status: Chronic Plan: Patient mostly stable on home medications. Continue home medications as below: Amlodipine 5 mg by mouth daily Metoprolol as above (4) HLD (hyperlipidemia) Status: Chronic Plan: Continue home medication. Atorvastatin 10 mg by mouth daily at bedtime (5) Pacemaker Status: Chronic Plan: No MRI or MRA because of metal components of patient's pacemaker. (5) No contraindication to deep vein thrombosis (DVT) prophylaxis Status: Acute Plan: Bilateral SCDs (Niranjan Tejada MD R2) Niranjan Tejada MD R2 Apr 30, 2016 10:17 Mallory Tejada MD Apr 30, 2016 13:33
[2016-04-30] MEDS: APIXABAN 2.5 MG TABLET PO SCH ×2 (10:25→21:31)
[2016-04-30] MEDS: AZITHROMYCIN INJ 500 MG in SODIUM CHLOR 0.9% 250 ML INJ 250 ML IV SCH (10:44)
[2016-04-30] MEDS: CEFEPIME INJ 2,000 MG in SODIUM CHLORIDE 0.9% INJ 100 ML IV SCH (12:00)
[2016-04-30] MEDS: AMITRIPTYLINE HCL 10 MG TAB PO SCH (21:31)
[2016-04-30] MEDS: ATORVASTATIN 10 MG TAB PO SCH (21:32)
[2016-05-01] VITALS (7 sets, daily range): BP systolic 133–172; BP diastolic 66–84; PULSE 106–125; RESP 18–20; TEMP 97.7–98.7; O2SAT 93–100
[2016-05-01] MEDS: CEFEPIME INJ 2,000 MG in SODIUM CHLORIDE 0.9% INJ 100 ML IV SCH ×3 (00:47→21:26)
--- NOTE | 2016-05-01 05:50 | MB ---
cc: JOSE ENRIQUE HOU DATE OF CONSULTATION 04/30/2016 REASON FOR CONSULTATION Respiratory insufficiency and history of sleep apnea. HISTORY OF PRESENT ILLNESS This is an 86-year-old lady who has been admitted through the emergency room with complaints of weakness in her leg and difficulty in ambulation. The patient apparently was hypoxic upon arrival in the ER and her O2 sats were only 84%. She has placed on O2 at 2-3 liters nasal cannula and ultrasound study of the legs ruled out DVT and a CT of the chest showed no evidence of PE but had some ground glass infiltrates consistent with edema and/or pneumonia. The patient has been placed on antibiotic therapy. She denies chest pains. She has an occasional cough but does not bring up much sputum and she has had no fevers, chills, night sweats or hemoptysis. PAST HISTORY The patient's past history has included - 1. History of atrial fibrillation. 2. History of CHF. 3. Obstructive sleep apnea. 4. History of hypertension. 5. She has had history of hip replacement on the left side 6. Permanent pacemaker placement in 1999. 7. Fractured knee repaired in 2000. 8. She has had left carotid endarterectomy. ALLERGIES SULFA and LATEX. MED LIST 1. Metoprolol 100 mg b.i.d. 2. Aspirin one daily. 3. Lipitor 10 mg daily. 4. Amlodipine 5 mg daily. 5. Lidocaine patch for pain. 6. Eliquis 2.5 mg b.i.d. 7. Amitriptyline 10 mg. FAMILY HISTORY History of esophageal cancer in her father and mother had COPD. HABITS The patient does not smoke. No alcohol use. SYSTEMS REVIEW The patient has had nasal congestion, wheezing, orthopnea sleep apnea and she has had reflux and epigastric pain. Denies vomiting. She has had weakness of her lower extremities with knee pain and ankle pains. Denies calf muscle pain. She has had no urinary symptoms. Other system review is negative. PHYSICAL EXAMINATION General: This averagely built elderly white female who is pale and mildly dyspneic at rest. Vital Signs: Blood pressure 140/70. Pulse is 90, respirations 22, temperature 98.2. HEENT: Head normocephalic. Pupils are reactive and equal. Tongue moist. Throat is mildly injected. Nasal mucosa edematous. Neck: Supple. No bruits, no thyroid enlargement, no lymphadenopathy. Chest: Equal movements with decreased excursions with occasional bibasilar crackles. Heart: The heart sounds are irregular. S1 and S2 with no murmur. No S3. Abdomen: Soft and nontender. No organomegaly. Bowel sounds are active. Extremities: Muscle wasting of the lower extremities with deformity of the toes and there is edema of the foot with diminished peripheral pulses. No calf tenderness. Neurologic: The patient does move her legs and has no gross motor deficits. Cranial nerves grossly intact. Skin: No definite lesions. IMPRESSION 1. Bilateral pulmonary infiltrates, likely pulmonary edema with underlying interstitial lung disease. 1. History of coronary artery disease. 2. Reactive airways disease. 3. History of atrial arrhythmias. PLAN 1. The patient has been placed on 3 liters of oxygen which we will continue. 2. Continue with antibiotic coverage including Zithromax 500 mg IV daily and cefepime 2 grams IV t.i.d. 3. A bedside pulmonary function study will be obtained in the a.m. and a follow-up chest x-ray as well. 4. The patient will use C-PAP mask nightly if her chest x-ray does not clear significantly. 5. Further evaluation could be considered including a bronchoscopy. 6. We will continue with O2 supplementation and also arrange for home O2 if necessary. Thank you Dr. Mallory Tejada for this consultation. MD BRYCE Weir/DENNY /12:22 AM /5:30 AM
[2016-05-01] MEDS: POLYETHYLENE GLYCOL 17 GM PKG PO SCH (09:02)
[2016-05-01] MEDS: POTASSIUM CHLORIDE 20 MEQ CONTROLLED RELEASE TAB PO SCH (09:04)
[2016-05-01] MEDS: APIXABAN 2.5 MG TABLET PO SCH ×2 (09:04→21:25)
[2016-05-01] MEDS: METOPROLOL TARTRATE 100 MG TAB PO SCH ×2 (09:04→21:25)
[2016-05-01] MEDS: ACETAMINOPHEN/HYDROcodone 325 MG/10 MG TAB PO PRN ×2 (09:04→21:27)
[2016-05-01] MEDS: ASPIRIN EC 81 MG TABEC PO SCH (09:04)
[2016-05-01] MEDS: amLODIPine BESYLATE 5 MG TAB PO SCH (09:04)
[2016-05-01] MEDS: FUROSEMIDE 20 MG/2 ML VIAL IV PUSH SCH (09:04)
[2016-05-01] MEDS: SODIUM CHLORIDE 0.9% FLUSH 5 ML FLUSH FLUSH SCH ×2 (09:05→21:00)
[2016-05-01 12:44] LABS: BICARBONATE 29.2 MEQ/L (21.0-32.0); POTASSIUM 3.5 MEQ/L (3.5-5.1)
[2016-05-01] MEDS: AZITHROMYCIN INJ 500 MG in SODIUM CHLOR 0.9% 250 ML INJ 250 ML IV SCH (14:05)
--- NOTE | 2016-05-01 14:45 | HHI.FPPN ---
Subjective Remarks Dr. Hollis saw pt and he told the daughter that he wanted pt to have another day or two of lasix. She is doing better. OOB to chair and bathroom. (Yasir Schofield MD R1) Objective Vitals Vital Signs Date Time Temp Pulse Resp B/P Pulse Ox O2 Delivery O2 Flow Rate FiO2 05/01/16 11:40 97.9 119 18 134/72 95 05/01/16 11:00 96 Nasal Cannula 3.00 05/01/16 10:11 18 05/01/16 08:51 124 18 148/71 94 05/01/16 08:45 98.2 05/01/16 04:00 97.7 106 20 172/83 100 04/30/16 23:52 97.6 96 20 144/88 97 04/30/16 20:27 97.6 120 20 129/68 96 04/30/16 19:57 93 Nasal Cannula 3.00 04/30/16 16:30 97.4 116 18 148/71 96 I/O 04/30/16 04/30/16 04/30/16 05/01/16 05/01/16 05/01/16 07:00 15:00 23:00 07:00 15:00 23:00 Intake Total 480 ml Balance 480 ml Intake Oral 480 ml # Voids 3 1 # Bowel Movements 1 (Yasir Schofield MD R1) Result Diagram: 04/30/16 0620 05/01/16 1200 Imaging Last Impressions Lower Extremity Ultrasound 04/29/16816 Signed Impressions: Service Date/Time: Friday, April 29, 2016 09:16 - CONCLUSION: Negative for deep venous thrombosis. Regulo Gonzalez MD FACR Chest X-Ray 04/29/16816 Signed Impressions: Service Date/Time: Friday, April 29, 2016 08:46 - CONCLUSION: Probable CHF. Elliott Gonzalez MD CT Angiography 04/29/16816 Signed Impressions: Service Date/Time: Friday, April 29, 2016 10:18 - CONCLUSION: 1. Negative for pulmonary embolus. 2. Diffuse ground glass opacity in both lungs. Differential diagnosis includes edema or some form of infectious or hypersensitivity pneumonitis. Small effusions. Mild fibrotic changes in the lungs. 3. Small hiatal hernia. Pancho Lee MD Objective Remarks O. CONSTITUTIONAL/GEN: normally nourished, in NAD, wearing oxygen.. Alert, clear thinking. EYES: conjunctiva normal, PERRLA, EOMI. ENT: Mouth and pharynx normal. NECK: Supple, carotids symmetrical. LUNGS: Bibasilar fine crackles, upper lung xie clear bilaterally. CARDIOVASCULAR: Tachycardic rate but regular rhythm without murmur or gallop. No significant edema. GI/ABD: soft without masses, without organomegaly. Active bowel sounds NEURO: No focal deficits. SKIN: color normal, no rashes noted. HEME/LYMPH: no bruising, petechia or significant adenopathy MUSC: back is normal in appearance. Extremities are normal in appearance. PSYCH/MENTAL STATUS: Alert and oriented x 3. (Yasir Schofield MD R1) A/P Assessment and Plan Pt presented to the ED with a chief complaint of lower extremity weakness, found to have O2 sat's of 84% on RA and some asymmetric leg swelling. CTA ruled out PE but was concerning for edema versus pneumonitis. Patient will be admitted for antibiotic therapy, case management consult, and likely discharge to a penitentiary facility after 3 midnights. Discharge Planning Likely after 3 midnight to a penitentiary facility. Patient's daughter would like to go to [facility] Case management consult for discharge planning. She should be ready to go tomorrow. (Yasir Schofield MD R1) Attending Attestation Patient seen and examined. Case reviewed and discussed with the resident team. Agree with plan of care as discussed with me and documented in the resident note. (Mallory Tejada MD) Problem List: (1) Hypoxia Status: Acute Plan: Improved with oxygen. CTA shows diffuse ground glass appearing lungs and Bilateral pulmonary infiltrates, likely pulmonary edema with underlying interstitial lung disease. Continue antibiotics azithromycin, cefepime for possible pneumonia started on -Azithromycin 500 mg IV daily -Cefepime 2 g IV every 12 hours Follow-up blood culture Monitor vital signs Incentive spirometer -Oxygen when necessary satting less than 94%. Continue O2 via nasal cannula 3 L/ m --Consulted pulmonology, recommendations appreciated below: -Bedside PFTs and follow-up chest x-ray -The patient will use C-PAP mask nightly for NIGEL if her chest x-ray does not clear significantly. -Further evaluation could be considered including a bronchoscopy. -Wean O2 and arrange for home O2 if necessary. Ordered home oxygen walk test. home o2 of 2L/m if sats <88 on RA. -Continue antibiotics as ordered. - Add Duonebs tid. -Continue Lasix 20 mg IV daily. (2) Weakness of both legs Status: Acute Plan: Patient presented with chief complaint of lower extremity weakness and inability to stand this morning. Consult physical therapy. Appreciate recommendation to send patient to PT at rehabilitation (3) Nutrition, metabolism, and development symptoms Status: Acute Plan: Fluids: Not indicated at this time Electrolytes: Monitor and replete as necessary Nutrition: Regular basic diet Continue home medications for chronic medical problems: (1) Knee pain, chronic Status: Chronic Plan: Patient mostly stable on home medications. Continue home medications as below: [place] 325-10 mg on tab by mouth every 8 hours when necessary for pain MiraLAX 17 g by mouth daily for opioid-induced constipation Amitriptyline 10 mg by mouth daily at bedtime to help with sleep and chronic pain (2) Atrial fibrillation, chronic Status: Chronic Plan: Continue home medications. Apixaban 2.5 mg by mouth twice a day Aspirin 81 mg by mouth daily Metoprolol tartrate 100 mg by mouth twice a day (3) Hypertension Status: Chronic Plan: Patient mostly stable on home medications. Continue home medications as below: Amlodipine 5 mg by mouth daily Metoprolol as above (4) HLD (hyperlipidemia) Status: Chronic Plan: Continue home medication. Atorvastatin 10 mg by mouth daily at bedtime (5) Pacemaker Status: Chronic Plan: No MRI or MRA because of metal components of patient's pacemaker. (4) No contraindication to deep vein thrombosis (DVT) prophylaxis Status: Acute Plan: Bilateral SCDs (Yasir Schofield MD R1) Yasir Schofield MD R1 May 01, 2016 14:45 Mallory Tejada MD May 02, 2016 10:56
--- NOTE | 2016-05-01 18:24 | HHI.PR ---
Subjective Remarks Less cough and wheezing. Still weak in her legs. has SOB at rest and needs O2. Objective Vital Signs Date Time Temp Pulse Resp B/P Pulse Ox O2 Delivery O2 Flow Rate FiO2 05/01/16 16:29 98.7 118 18 133/66 95 05/01/16 11:40 97.9 119 18 134/72 95 05/01/16 11:00 96 Nasal Cannula 3.00 05/01/16 10:11 18 05/01/16 08:51 124 18 148/71 94 05/01/16 08:45 98.2 05/01/16 04:00 97.7 106 20 172/83 100 04/30/16 23:52 97.6 96 20 144/88 97 04/30/16 20:27 97.6 120 20 129/68 96 04/30/16 19:57 93 Nasal Cannula 3.00 I/O 04/30/16 04/30/16 04/30/16 05/01/16 05/01/16 05/01/16 07:00 15:00 23:00 07:00 15:00 23:00 Intake Total 480 ml Balance 480 ml Intake Oral 480 ml # Voids 3 1 # Bowel Movements 1 Result Diagram: 04/30/16 0620 05/01/16 1200 Objective Remarks General: This averagely built elderly white female who is pale and mildly dyspneic at rest. HEENT: Head normocephalic. Pupils are reactive and equal. Tongue moist. Throat is clear, Nasal mucosa edematous. Neck: Supple. No bruits, no thyroid enlargement, no lymphadenopathy. Chest: Equal movements with decreased excursions with occasional bibasilar crackles.Few wheezes scattered. Heart: The heart sounds are irregular. S1 and S2 with no murmur. No S3. Abdomen: Soft and nontender. No organomegaly. Bowel sounds are active. Extremities: Muscle wasting of the lower extremities with deformity of the toes and there is edema of the foot with diminished peripheral pulses. No calf tenderness. Neurologic: The patient does move her legs and has no gross motor deficits. Cranial nerves grossly intact. Skin: No definite lesions. Assessment and Plan Assessment and Plan IMPRESSION 1. Bilateral pulmonary infiltrates, likely pulmonary edema with underlying interstitial lung disease. 1. History of coronary artery disease. 2. Reactive airways disease. 3. History of atrial arrhythmias. Plan : 1. Continue antibiotics as ordered. 2. Wean O2 and arrange home o2 2L if sats <88 on RA. 3. Chest X ray in am. 4. CPAP at HS for NIGEL. 5. PFT today. 6. Add Duonebs tid. 7. Continue Lasix 20 mg IV daily. Mahendra Hollis MD May 01, 2016 18:24
[2016-05-01] MEDS: AMITRIPTYLINE HCL 10 MG TAB PO SCH (21:25)
[2016-05-01] MEDS: ATORVASTATIN 10 MG TAB PO SCH (21:25)
[2016-05-02] VITALS (7 sets, daily range): BP systolic 102–147; BP diastolic 56–81; PULSE 105–120; RESP 18–20; TEMP 97.5–98.2; O2SAT 90–100
--- NOTE | 2016-05-02 06:43 | RADRPT ---
EXAM DATE/TIME: 05/02/2016 06:16 [facility] COMPARISON: CHEST SINGLE AP, April 29, 2016, 8:46. INDICATIONS : Follow up edema. MEDICAL HISTORY : Hypertension. Cardiovascular disease. SURGICAL HISTORY : ENCOUNTER: Subsequent ACUITY: 3 days PAIN SCORE: 6/10 LOCATION: Bilateral chest FINDINGS: The heart is upper limits normal size. Minimal indistinctness of the central bronchopulmonary markin gs and patchy areas of infiltrate at the left lung base are similar to prior examination. No definit e peribronchial thickening. CONCLUSION: Persistent left lower lung infiltrate. Diffuse interstitial prominence in both lungs may represent i nterstitial edema and is similar to prior exam. Bora Soto MD on May 02, 2016 at 6:40 Board Certified Radiologist. This report was verified electronically.
[2016-05-02] MEDS: RESP: ALBUTEROL 2.5 MG/IPRATROPIUM 0.5 MG NEB (SCH) NEB ×4 (07:34→20:50)
[2016-05-02] MEDS: ASPIRIN EC 81 MG TABEC PO SCH (08:56)
[2016-05-02] MEDS: APIXABAN 2.5 MG TABLET PO SCH ×2 (08:56→21:00)
[2016-05-02] MEDS: METOPROLOL TARTRATE 100 MG TAB PO SCH ×2 (08:57→21:00)
[2016-05-02] MEDS: amLODIPine BESYLATE 5 MG TAB PO SCH (08:57)
[2016-05-02] MEDS: POLYETHYLENE GLYCOL 17 GM PKG PO SCH (08:57)
[2016-05-02] MEDS: ACETAMINOPHEN/HYDROcodone 325 MG/10 MG TAB PO PRN ×2 (08:57→18:40)
[2016-05-02] MEDS: SODIUM CHLORIDE 0.9% FLUSH 5 ML FLUSH FLUSH SCH ×2 (08:57→21:00)
[2016-05-02] MEDS: POTASSIUM CHLORIDE 20 MEQ CONTROLLED RELEASE TAB PO SCH (08:57)
[2016-05-02] MEDS: FUROSEMIDE 20 MG/2 ML VIAL IV PUSH SCH (08:58)
[2016-05-02 09:42] LABS: BICARBONATE 27.9 MEQ/L (21.0-32.0); POTASSIUM 3.5 MEQ/L (3.5-5.1)
--- NOTE | 2016-05-02 10:39 | HHI.FPPN ---
Subjective Remarks No acute events overnight. Patient remains tachycardic with a heart rate between 110s 120s, with a lowest pulse ox of 93% on 3 L nasal cannula. Patient failed home oxygen walk test, and she will be sent to SNF with oxygen. Patient complaining of cough. Discussed with patient that she'll likely be discharged tomorrow on Levaquin. (Yasir Schofield MD R1) Objective Vitals Vital Signs Date Time Temp Pulse Resp B/P Pulse Ox O2 Delivery O2 Flow Rate FiO2 05/02/16 08:17 2.00 05/02/16 07:58 97.7 118 18 138/65 92 05/02/16 00:08 97.6 117 20 139/63 93 05/01/16 22:27 18 05/01/16 21:05 98.6 125 20 136/84 93 05/01/16 16:29 98.7 118 18 133/66 95 05/01/16 11:40 97.9 119 18 134/72 95 05/01/16 11:00 96 Nasal Cannula 3.00 I/O 05/01/16 05/01/16 05/01/16 05/02/16 05/02/16 05/02/16 07:00 15:00 23:00 07:00 15:00 23:00 Intake Total 100 ml Balance 100 ml IV Total 100 ml # Voids 1 (Yasir Schofield MD R1) Result Diagram: 04/30/16 0620 05/02/16 0836 Imaging Last Impressions Chest X-Ray 05/02/16 0600 Signed Impressions: Service Date/Time: Monday, May 02, 2016 06:16 - CONCLUSION: Persistent left lower lung infiltrate. Diffuse interstitial prominence in both lungs may represent interstitial edema and is similar to prior exam. Bora Soto MD Lower Extremity Ultrasound 04/29/16816 Signed Impressions: Service Date/Time: Friday, April 29, 2016 09:16 - CONCLUSION: Negative for deep venous thrombosis. Regulo Gonzalez MD FACR CT Angiography 04/29/16816 Signed Impressions: Service Date/Time: Friday, April 29, 2016 10:18 - CONCLUSION: 1. Negative for pulmonary embolus. 2. Diffuse ground glass opacity in both lungs. Differential diagnosis includes edema or some form of infectious or hypersensitivity pneumonitis. Small effusions. Mild fibrotic changes in the lungs. 3. Small hiatal hernia. Pancho Lee MD Objective Remarks O. CONSTITUTIONAL/GEN: normally nourished, in NAD, wearing oxygen.. Alert, clear thinking. EYES: conjunctiva normal, PERRLA, EOMI. ENT: Mouth and pharynx normal. Cough productive of grossly bloody sputum NECK: Supple, carotids symmetrical. LUNGS: Bibasilar fine crackles, upper lung xie clear bilaterally. CARDIOVASCULAR: Tachycardic rate but regular rhythm without murmur or gallop. No significant edema. GI/ABD: soft without masses, without organomegaly. Active bowel sounds NEURO: No focal deficits. SKIN: color normal, no rashes noted. HEME/LYMPH: no bruising, petechia or significant adenopathy MUSC: back is normal in appearance. Extremities are normal in appearance. PSYCH/MENTAL STATUS: Alert and oriented x 3. (Yasir Schofield MD R1) A/P Assessment and Plan Pt presented to the ED with a chief complaint of lower extremity weakness, found to have O2 sat's of 84% on RA and some asymmetric leg swelling. CTA ruled out PE but was concerning for edema versus pneumonitis. Patient will be admitted for antibiotic therapy, case management consult, and likely discharge to a long-term facility after 3 midnights. Discharge Planning Likely after 3 midnight to a long-term facility. Patient's daughter would like to go to [facility] Case management consult for discharge planning. She should be ready to go tomorrow. (Yasir Schofield MD R1) Attending Attestation Patient seen and examined. Case reviewed and discussed with the resident team. Agree with plan of care as discussed with me and documented in the resident note. (Mallory Tejada MD) Problem List: (1) Hypoxia Status: Acute Plan: Improved with oxygen. CTA shows diffuse ground glass appearing lungs and Bilateral pulmonary infiltrates, likely pulmonary edema with underlying interstitial lung disease. Chest x-ray from May 02, 2016 shows persistent left lower lung infiltrate. Thus we'll continue antibiotic therapy as below. Continue antibiotics azithromycin, cefepime for possible pneumonia started on -Azithromycin 500 mg IV daily -Cefepime 2 g IV every 12 hours Follow-up blood culture Monitor vital signs Incentive spirometer -Oxygen when necessary satting less than 94%. Continue O2 via nasal cannula 3 L/ m --Consulted pulmonology, recommendations appreciated below: -Bedside PFTs -The patient will use C-PAP mask nightly for NIGEL if her chest x-ray does not clear significantly. -Further evaluation could be considered including a bronchoscopy. -Wean O2 and arrange for home O2 if necessary. Ordered home oxygen walk test. home o2 of 2L/m if sats <88 on RA. -Continue antibiotics as ordered. -Duonebs qid. -Continue Lasix 20 mg IV daily. (2) Weakness of both legs Status: Acute Plan: Patient presented with chief complaint of lower extremity weakness and inability to stand this morning. Consult physical therapy. Appreciate recommendation to send patient to PT at rehabilitation (3) Nutrition, metabolism, and development symptoms Status: Acute Plan: Fluids: Not indicated at this time Electrolytes: Monitor and replete as necessary Nutrition: Regular basic diet Continue home medications for chronic medical problems: (1) Knee pain, chronic Status: Chronic Plan: Patient mostly stable on home medications. Continue home medications as below: [place] 325-10 mg on tab by mouth every 8 hours when necessary for pain MiraLAX 17 g by mouth daily for opioid-induced constipation Amitriptyline 10 mg by mouth daily at bedtime to help with sleep and chronic pain (2) Atrial fibrillation, chronic Status: Chronic Plan: Continue home medications. Apixaban 2.5 mg by mouth twice a day Aspirin 81 mg by mouth daily Metoprolol tartrate 100 mg by mouth twice a day (3) Hypertension Status: Chronic Plan: Patient mostly stable on home medications. Continue home medications as below: Amlodipine 5 mg by mouth daily Metoprolol as above (4) HLD (hyperlipidemia) Status: Chronic Plan: Continue home medication. Atorvastatin 10 mg by mouth daily at bedtime (5) Pacemaker Status: Chronic Plan: No MRI or MRA because of metal components of patient's pacemaker. (4) No contraindication to deep vein thrombosis (DVT) prophylaxis Status: Acute Plan: Bilateral SCDs (Yasir Schofield MD R1) Yasir Schofield MD R1 May 02, 2016 10:39 Mallory Tejada MD May 02, 2016 15:01
[2016-05-02] MEDS: CEFEPIME INJ 2,000 MG in SODIUM CHLORIDE 0.9% INJ 100 ML IV SCH ×2 (13:28→23:14)
[2016-05-02] MEDS: AZITHROMYCIN INJ 500 MG in SODIUM CHLOR 0.9% 250 ML INJ 250 ML IV SCH (13:28)
[2016-05-02] MEDS: AMITRIPTYLINE HCL 10 MG TAB PO SCH (21:00)
[2016-05-02] MEDS: ATORVASTATIN 10 MG TAB PO SCH (21:00)
[2016-05-03 04:17] VITALS: BP 115/75; PULSE 108; RESP 20; TEMP 98.2; O2SAT 95
[2016-05-03 07:11] VITALS: O2SAT 95
[2016-05-03] MEDS: RESP: ALBUTEROL 2.5 MG/IPRATROPIUM 0.5 MG NEB (SCH) NEB ×2 (07:11→11:06)
[2016-05-03 08:00] VITALS: BP 160/65; PULSE 112; RESP 20; TEMP 97.2; O2SAT 95
--- NOTE | 2016-05-03 08:42 | HHI.FPPN ---
Subjective Remarks Patient doing okay this morning. Patient continues to have mild cough. No nausea, vomiting, fever, chills. She continues to feel weak and have knee pain. Understands the plan as discussed yesterday which is 2 go to a senior care facility today. (Niranjan Tejada MD R2) Objective Vitals Vital Signs Date Time Temp Pulse Resp B/P Pulse Ox O2 Delivery O2 Flow Rate FiO2 05/03/16 07:11 95 Nasal Cannula 2.00 05/03/16 04:17 98.2 108 20 115/75 95 05/02/16 23:40 98.0 110 19 120/80 93 05/02/16 20:52 90 21 05/02/16 19:44 98.2 120 19 123/81 94 05/02/16 19:43 16 05/02/16 16:21 98.2 110 18 147/71 100 05/02/16 12:14 97.5 105 18 102/56 94 (Niranjan Tejada MD R2) Result Diagram: 04/30/16 0620 05/02/16 0836 Objective Remarks O. CONSTITUTIONAL/GEN: normally nourished, in NAD, wearing oxygen.. Alert, clear thinking. EYES: conjunctiva normal, PERRLA, EOMI. ENT: Mouth and pharynx normal. NECK: Supple, carotids symmetrical. LUNGS: Improved Bibasilar fine crackles, upper lung xie clear bilaterally. CARDIOVASCULAR: Tachycardic rate but regular rhythm without murmur or gallop. No significant edema. GI/ABD: soft without masses, without organomegaly. Active bowel sounds NEURO: No focal deficits. SKIN: color normal, no rashes noted. HEME/LYMPH: no bruising, petechia or significant adenopathy MUSC: back is normal in appearance. Extremities are normal in appearance. PSYCH/MENTAL STATUS: Alert and oriented x 3. (Niranjan Tejada MD R2) A/P Assessment and Plan Pt presented to the ED with a chief complaint of lower extremity weakness, found to have O2 sat's of 84% on RA and some asymmetric leg swelling. CTA ruled out PE but was concerning for edema versus pneumonitis. Patient admitted for antibiotic therapy, case management consult, and discharge to a senior care facility after 3 midnights. Discharge Planning Discharged today to senior care facility. Patient's daughter would like to go to [facility] Case management consult for discharge planning. Physical therapy recommends PT at rehab (Niranjan Tejada MD R2) Attending Attestation Patient seen and examined. Case reviewed and discussed with the resident team. Agree with plan of care as discussed with me and documented in the resident note. (Mallory Tejada MD) Problem List: (1) Hypoxia Status: Acute Plan: Improved with oxygen. CTA shows diffuse ground glass appearing lungs and Bilateral pulmonary infiltrates, likely pulmonary edema with underlying interstitial lung disease. Chest x-ray from May 02, 2016 shows persistent left lower lung infiltrate. Thus we'll continue antibiotic therapy as below. Follow-up blood culture: No growth to date 3 Monitor vital signs Incentive spirometer -Oxygen when necessary satting less than 94%. Continue O2 via nasal cannula 3 L/ m --Consulted pulmonology, recommendations appreciated below: -Bedside PFTs -The patient will use C-PAP mask nightly for NIGEL if her chest x-ray does not clear significantly. Patient failed oxygen walk test. Discharged to senior care facility with oxygen. -Continue antibiotics: Levaquin 750 mg by mouth daily -Duonebs qid. -Continue Lasix 20 mg IV daily. History: antibiotics azithromycin, cefepime for possible pneumonia started on 04/29/2016 -Azithromycin 500 mg IV daily -Cefepime 2 g IV every 12 hours (2) Weakness of both legs Status: Acute Plan: Patient presented with chief complaint of lower extremity weakness and inability to stand this morning. Consult physical therapy. Appreciate recommendation to send patient to PT at rehabilitation (3) Nutrition, metabolism, and development symptoms Status: Acute Plan: Fluids: Not indicated at this time Electrolytes: Monitor and replete as necessary Nutrition: Regular basic diet Continue home medications for chronic medical problems: (1) Knee pain, chronic Status: Chronic Plan: Patient mostly stable on home medications. Continue home medications as below: [place] 325-10 mg on tab by mouth every 8 hours when necessary for pain MiraLAX 17 g by mouth daily for opioid-induced constipation Amitriptyline 10 mg by mouth daily at bedtime to help with sleep and chronic pain (2) Atrial fibrillation, chronic Status: Chronic Plan: Continue home medications. Apixaban 2.5 mg by mouth twice a day Aspirin 81 mg by mouth daily Metoprolol tartrate 100 mg by mouth twice a day (3) Hypertension Status: Chronic Plan: Patient mostly stable on home medications. Continue home medications as below: Amlodipine 5 mg by mouth daily Metoprolol as above (4) HLD (hyperlipidemia) Status: Chronic Plan: Continue home medication. Atorvastatin 10 mg by mouth daily at bedtime (5) Pacemaker Status: Chronic Plan: No MRI or MRA because of metal components of patient's pacemaker. (4) No contraindication to deep vein thrombosis (DVT) prophylaxis Status: Acute Plan: Bilateral SCDs (Niranjan Tejada MD R2) Niranjan Tejada MD R2 May 03, 2016 08:42 Mallory Tejada MD May 03, 2016 13:31
[2016-05-03] MEDS ORDERED: LEVA750T PO (08:44)
--- NOTE | 2016-05-03 08:44 | HHI.DCPOC ---
Discharge Care Plan Diagnosis: (1) Hypoxia (2) Pneumonitis Goals to Promote Your Health * To prevent worsening of your condition and complications * To maintain your health at the optimal level Directions to Meet Your Goals Take your medications as prescribed Follow your dietary instruction Follow activity as directed Keep your appointments as scheduled Take your immunizations and boosters as scheduled If your symptoms worsen call your PCP, if no PCP go to Urgent Care Center or Emergency Room Smoking is Dangerous to Your Health. Avoid second hand smoke Call the 24-hour hour crisis hotline for domestic abuse at Niranjan Tejada MD R2 May 03, 2016 08:44
[2016-05-03] MEDS ORDERED: OXYGENTANK NAS.CANULA (08:46)
[2016-05-03] MEDS: ASPIRIN EC 81 MG TABEC PO SCH (09:32)
[2016-05-03] MEDS: SODIUM CHLORIDE 0.9% FLUSH 5 ML FLUSH FLUSH SCH (09:32)
[2016-05-03] MEDS: amLODIPine BESYLATE 5 MG TAB PO SCH (09:32)
[2016-05-03] MEDS: APIXABAN 2.5 MG TABLET PO SCH (09:33)
[2016-05-03] MEDS: METOPROLOL TARTRATE 100 MG TAB PO SCH (09:33)
[2016-05-03] MEDS: ACETAMINOPHEN/HYDROcodone 325 MG/10 MG TAB PO PRN (09:34)
[2016-05-03] MEDS: POLYETHYLENE GLYCOL 17 GM PKG PO SCH (09:34)
[2016-05-03] MEDS: POTASSIUM CHLORIDE 20 MEQ CONTROLLED RELEASE TAB PO SCH (09:34)
[2016-05-03] MEDS: FUROSEMIDE 20 MG/2 ML VIAL IV PUSH SCH (09:36)
[2016-05-03 12:00] VITALS: BP_SYST 101; BP_SYST 114; BP_DIAS 50; BP_DIAS 61; PULSE 63; PULSE 74; RESP 20; TEMP 95.9; TEMP 97.7; O2SAT 95; O2SAT 98
[2016-05-03] MEDS: AZITHROMYCIN INJ 500 MG in SODIUM CHLOR 0.9% 250 ML INJ 250 ML IV SCH (12:11)
[2016-05-03] MEDS: CEFEPIME INJ 2,000 MG in SODIUM CHLORIDE 0.9% INJ 100 ML IV SCH (12:11)
--- NOTE | 2016-05-12 20:21 | HHI.DS ---
Discharge Summary Admission Date Apr 29, 2016 at 10:30 Admitting Diagnosis hypoxia, dyspnea, congestive heart failure (1) Hypoxia Diagnosis: Principal Plan: Improved with oxygen. CTA shows diffuse ground glass appearing lungs and Bilateral pulmonary infiltrates, likely pulmonary edema with underlying interstitial lung disease. Chest x-ray from May 02, 2016 shows persistent left lower lung infiltrate. Thus we'll continue antibiotic therapy as below. Follow-up blood culture: No growth to date 3 Monitor vital signs Incentive spirometer -Oxygen when necessary satting less than 94%. Continue O2 via nasal cannula 3 L/ m --Consulted pulmonology, recommendations appreciated below: -Bedside PFTs -The patient will use C-PAP mask nightly for NIGEL if her chest x-ray does not clear significantly. Patient failed oxygen walk test. [facility]. -Continue antibiotics: Levaquin 750 mg by mouth daily -Duonebs qid. -Continue Lasix 20 mg IV daily. History: antibiotics azithromycin, cefepime for possible pneumonia started on 04/29/2016 -Azithromycin 500 mg IV daily -Cefepime 2 g IV every 12 hours (2) Weakness of both legs Diagnosis: Principal Plan: Patient presented with chief complaint of lower extremity weakness and inability to stand this morning. Consult physical therapy. Appreciate recommendation to send patient to PT at rehabilitation (3) Nutrition, metabolism, and development symptoms Diagnosis: Secondary Plan: Fluids: Not indicated at this time Electrolytes: Monitor and replete as necessary Nutrition: Regular basic diet Continue home medications for chronic medical problems: (1) Knee pain, chronic Status: Chronic Plan: Patient mostly stable on home medications. Continue home medications as below: Mountainair 325-10 mg on tab by mouth every 8 hours when necessary for pain MiraLAX 17 g by mouth daily for opioid-induced constipation Amitriptyline 10 mg by mouth daily at bedtime to help with sleep and chronic pain (2) Atrial fibrillation, chronic Status: Chronic Plan: Continue home medications. Apixaban 2.5 mg by mouth twice a day Aspirin 81 mg by mouth daily Metoprolol tartrate 100 mg by mouth twice a day (3) Hypertension Status: Chronic Plan: Patient mostly stable on home medications. Continue home medications as below: Amlodipine 5 mg by mouth daily Metoprolol as above (4) HLD (hyperlipidemia) Status: Chronic Plan: Continue home medication. Atorvastatin 10 mg by mouth daily at bedtime (5) Pacemaker Status: Chronic Plan: No MRI or MRA because of metal components of patient's pacemaker. (4) No contraindication to deep vein thrombosis (DVT) prophylaxis Diagnosis: Secondary Plan: Bilateral [facility] Pulmonology Brief History Patient is an 86-year-old woman who was recently discharged from our service who returned to the emergency department this morning. She reports that she was trying to get out of bed to bedside commode, but she couldn't stand, which is the same chief complaint that she presented with on prior admission. She endorses feeling more tired lately. Pt presented to the ED with O2 sat's of 84% on RA and some asymmetric leg swelling. Ultrasound of the leg ruled out DVT. CTA ruled out PE but was concerning for edema versus pneumonitis. Patient started on antibiotics and oxygen. Imaging Last Impressions Chest X-Ray 05/02/16 0600 Signed Impressions: Service Date/Time: Monday, May 02, 2016 06:16 - CONCLUSION: Persistent left lower lung infiltrate. Diffuse interstitial prominence in both lungs may represent interstitial edema and is similar to prior exam. Bora Soto MD Lower Extremity Ultrasound 04/29/16816 Signed Impressions: Service Date/Time: Friday, April 29, 2016 09:16 - CONCLUSION: Negative for deep venous thrombosis. Regulo Gonzalez MD FACR CT Angiography 04/29/16816 Signed Impressions: Service Date/Time: Friday, April 29, 2016 10:18 - CONCLUSION: 1. Negative for pulmonary embolus. 2. Diffuse ground glass opacity in both lungs. Differential diagnosis includes edema or some form of infectious or hypersensitivity pneumonitis. Small effusions. Mild fibrotic changes in the lungs. 3. Small hiatal hernia. Pancho Lee MD PE at Discharge O. CONSTITUTIONAL/GEN: normally nourished, in NAD, wearing oxygen.. Alert, clear thinking. EYES: conjunctiva normal, PERRLA, EOMI. ENT: Mouth and pharynx normal. NECK: Supple, carotids symmetrical. LUNGS: Improved Bibasilar fine crackles, upper lung xie clear bilaterally. CARDIOVASCULAR: Tachycardic rate but regular rhythm without murmur or gallop. No significant edema. GI/ABD: soft without masses, without organomegaly. Active bowel sounds NEURO: No focal deficits. SKIN: color normal, no rashes noted. HEME/LYMPH: no bruising, petechia or significant adenopathy MUSC: back is normal in appearance. Extremities are normal in appearance. PSYCH/MENTAL STATUS: Alert and oriented x 3. Hospital Course Pt was admitted for hypoxia with a pulse ox in the mid-80's and with a chief complaint of BL LE weakness. Pulmonology was consulted who recommended continuing empiric antibiotic treatment of HCAP, PFT's, CPAP, diuresis, nebulizer treatments, and oxygen. PT recommended PT rehab at a SNF. Pt qualified for home oxygen, and was discharged with home O2 and Levaquin. Pt Condition on Discharge: Stable Discharge Disposition: Discharge to SNF Discharge Instructions DIET: Follow Instructions for: As Tolerated, No Restrictions Activities you can perform: Regular-No Restrictions Other Activity Instructions: Per physical therapy recommendations on 04/27 Follow up Referrals: PCP Follow-up - 1 Week New Medications: Levofloxacin (Levaquin) 750 Mg Tab 750 MG PO DAILY Infection #10 Ref 0 TAB Oxygen tank (Oxygen tank) 1 Ea Tank 2 LITER RASHID[employer] CONTINUOUS Oxygen Concentrator Portable Gaseous 2 L/min via Nasal Cannula Continuous For 99 months HYPOXEMIA PREVENTION #1 CYLINDER Continued Medications: Amitriptyline (Amitriptyline) 10 Mg Tab 10 MG PO HS Control Depression #30 Ref 0 TAB Amlodipine (Norvasc) 5 Mg Tab 5 MG PO DAILY Blood Pressure Management #30 Ref 0 TAB Apixaban (Eliquis) 2.5 Mg Tab 2.5 MG PO BID Blood Clot Prevention #60 Ref 0 TAB Aspirin (Aspirin) 81 Mg Tabdr 81 MG PO DAILY TAB Atorvastatin (Lipitor) 10 Mg Tab 10 MG PO HS Cholesterol Management #30 Ref 0 TAB Cholecalciferol (Vitamin D) 2,000 Unit Tab 2000 UNITS PO DAILY Hydrocodone-Acetaminophen (Hydrocodone-Acetaminophen) 10-325 mg Tab 1 TAB PO Q6H not to be filled before 05-09-16 PRN PAIN #120 Ref 0 TAB Magnesium Aspartate (Magnesium Aspartate) 65 Mg Tab 200 MG PO BID Nutritional Supplement Ref 0 TAB Metoprolol Tartrate (Metoprolol Tartrate) 100 Mg Tab 100 MG PO BID #60 Ref 0 TAB Multiple Vitamin (Multi Vitamin) 1 Tab Tab 1 TAB PO DAILY TAB Polyethylene Glycol 3350 Powder (Miralax Powder) 17 Gm Powd 17 GM PO DAILY Mix and dissolve one measuring cap-ful (17 grams) in water or juice. Constipation #1 Ref 0 BOTTLE ([Ocu Support-Macular]) 1 TAB PO BID Yasir Schofield MD R1 May 12, 2016 20:21
[2016-06-02] MEDS ORDERED: HYDR-3583 PO ×2 (09:37→09:43)
[2016-06-03] MEDS ORDERED: CO Q200C PO (09:30)
[2016-06-03] MEDS ORDERED: LIDO1PAD52 TOPICAL (09:30)
[2016-06-03] MEDS ORDERED: MAGN400T2 PO (09:30)
[2016-06-03] MEDS ORDERED: [UNRECOGNIZED DRUG - OTHER] PO (09:30)
[2016-06-03] MEDS ORDERED: OXYGENTANK NAS.CANULA (09:30)
[2016-06-03] MEDS ORDERED: alpha lipoic acid (09:30)
[2016-06-03] MEDS ORDERED: FURO1TAB62 PO (09:30)
[2016-06-03] MEDS ORDERED: POTA10TA15 PO (09:30)
--- NOTE | 2016-06-09 08:48 | RSPPFT ---
DATE OF PROCEDURE: 05/02/16 COMMENTS: Spirometry demonstrates an FEV1 of 1.4 at 98% of predicted, FVC of 1.5 at 67%, FEF 25-75 is 212%. Flow volume loops are atypical indicating restriction. IMPRESSION: 1. Moderately severe restrictive disease. 2. No significant obstructive disease.
[2016-09-01] MEDS ORDERED: HYDR-3583 PO ×3 (09:17→09:20)
[2016-10-08] MEDS ORDERED: AMIT10TA6 PO (14:26)
== END 2016-05-03 14:47 | DRG 198 ==
LOC: NEPC 08:12 → NEDA 10:30 → OBSVTOIN 10:30 → NEDA 10:34 → UNDOADMOB 10:34 → INTOOBSV 10:34 → NEDA 15:54 → NEDH 15:54 → NEPGCP 19:18 → NEDH 19:18 → INTOOBSV 04-30 09:58 → OBSVTOIN 04-30 09:58
PROVIDERS: ADMIT Family Medicine; ATTEND Family Medicine
DX: J84.9 Interstitial pulmonary disease, unspecified (principal); I50.9 Heart failure, unspecified; I48.2 Chronic atrial fibrillation; R09.02 Hypoxemia; G47.33 Obstructive sleep apnea (adult) (pediatric); I10 Essential (primary) hypertension; Z79.02 Long term (current) use of antithrombotics/antiplatelets; Z79.82 Long term (current) use of aspirin; I25.10 Atherosclerotic heart disease of native coronary artery without angina pectoris; E78.5 Hyperlipidemia, unspecified; M25.569 Pain in unspecified knee; R53.1 Weakness; Z95.0 Presence of cardiac pacemaker; Z96.642 Presence of left artificial hip joint; Z86.73 Personal history of transient ischemic attack (TIA), and cerebral infarction without residual deficits
CPT/HCPCS: 71010; 71275; 80048; 80053; 82550; 82805; 83735; 83880; 84484; 85025; 85610; 85730; 87040; 87804; 93005; 93971; 94010; 94150; 94620; 94640; 94664; G8987-GP; G8988-GP; J0456; J0692; J1940; J7050; Q9967

== ENCOUNTER → 2016-07-31 | Day surgery (SDC) | payer MEDICARE, OTHER ==
[~2016-07-31] MED LIST changes: -AMLO5 PO; +CO Q200C PO; +FURO1TAB62 PO; +LACTATED RINGER'S 1000 ML INJ 1,000 ML ONE; +LIDO1PAD52 TOPICAL; +LIDOCAINE HCL 1% PF 30 ML VIAL ONE; -LIPI10TA PO; +MAGN400T2 PO; -MAGN65TA PO; +MIDAZOLAM HCL 2 MG/2 ML VIAL ONE; +OXYGENTANK NAS.CANULA; +POTA10TA15 PO; +PROPOFOL 100 MG/10 ML INJ IV ONE; +TRIAMCINOLONE ACETONIDE 40 MG/ML VIAL ONE; +[UNRECOGNIZED DRUG - OTHER] PO; +alpha lipoic acid
--- NOTE | 2016-07-31 17:17 | TN ---
cc: ALEX DUMONT DATE OF SURGERY: 07/31/2016 PREOPERATIVE DIAGNOSIS 1. Osteoarthritis right hip. 2. Arthrofibrosis right hip. POSTOPERATIVE DIAGNOSIS 1. Osteoarthritis right hip. 2. Arthrofibrosis right hip. PROCEDURE 1. Manipulation right hip under anesthesia. 2. Arthrogram right hip. 3. Injection of Kenalog right hip, 40 mg. 4. Use of fluoroscopy for percutaneous guidance 5. Arthrogram right hip. SURGEON Alex Dumont ANESTHESIA TIVA. ESTIMATED BLOOD LOSS: Minimal or none. INDICATION This is an 86-year-old female with significant right hip pain, loss of range of motion and difficulty with ambulation. Investigative studies shows evidence of extensive arthritis right hip. Despite conservative care she is painful and symptomatic. She presents now for the above procedure. PROCEDURE The patient brought to the operating room and given limited sedation. The right hip was evaluated under anesthesia. Evaluation of the right hip showed range of motion, flexion 80, extension negative 30, internal rotation 20, external rotation 30, adduction 10 abduction 20. After manipulation extension negative 10, flexion 100 degrees anterior rotation 15 external rotation 25, adduction 20, abduction 25. The right hip was evaluated it was scrubbed alcohol followed by Hibiclens followed Chloraprep and draped sterilely. A 22-gauge spinal needle was advanced down to the anterior aspect of the right hip joint. This was placed in intra-articular position. We then injected with contrast. The arthrogram showed evidence of pitting erosive changes with irregularity of the cephalad portion of the head which may be consistent with avascular necrosis, no leak of contrast was seen. We then injected with 40 mg of Kenalog and 3 cc of 1% lidocaine plain. The hip was run through second range of motion. An intraoperative x-rays taken in two planes showing evidence of severe arthritis changes as noted on the arthrogram no evidence of a fracture. The patient awakened to recovery in satisfactory Condition. Alex Dumont MD [facility]/ /1:52 PM /5:04 PM
== END | disposition home or self-care (01) ==
LOC: ESDC 11:44
PROVIDERS: ATTEND Orthopaedic Surgery Orthopaedic Surgery of the Spine
DX: M16.11 Unilateral primary osteoarthritis, right hip (principal); M24.651 Ankylosis, right hip
CPT/HCPCS: 01200; 27275; 73502; 76000; J2250; J3010; J3301; J7120